=== PATIENT | female | born 1975 | race Caucasian/White ===

== ENCOUNTER 2017-03-14 15:13 | Emergency (ER) | payer MEDICAID ==
[2017-03-14 17:02] VITALS: BP 136/96
--- NOTE | 2017-03-14 18:01 | EDM.PDOC ---
ED HPI GENERAL MEDICAL PROBLEM - General Chief Complaint: Skin Complaint Stated Complaint: INFECTION Time Seen by Provider: 03/14/17 16:41 Source of Information: Reports: Patient, RN Notes Reviewed History Limitations: Reports: No Limitations - History of Present Illness INITIAL COMMENTS - FREE TEXT/NARRATIVE: 41-year-old female presents emergency department day complaint of rash on her chin, she states this is developed over the last 3 days initially started with a whisker burn has progressively gotten worse started with small vesicles which had clear fluid that has coalesced into a larger denuded area that is yellow in color it is tender to the touch it is predominantly on the chin area but is starting to spread denies any fevers or difficulty swallowing - Related Data Allergies Allergy/AdvReac Type Severity Reaction Status Date / Time morphine Allergy Swelling Verified 08/03/16 19:33 Sulfa (Sulfonamide Allergy Rash Verified 08/03/16 19:33 Antibiotics) Home Meds: Home Meds ALPRAZolam [Xanax] 1 mg PO BID 12/07/13 [History] Hydrocodone/Acetaminophen [Vicodin 5-300 mg Tablet] 1 each PO TID PRN 12/07/13 [ History] Ibuprofen 800 mg PO Q4HR PRN 12/07/13 [History] Albuterol [Proventil HFA] 1 dose INH QID PRN 02/24/15 [History] Fluticasone Propionate [Flonase] 2 sprays IDALIA DAILY PRN 02/24/15 [History] Pregabalin [Lyrica] 150 mg PO TID 02/14/16 [History] Past Medical History HEENT History: Reports: Allergic Rhinitis Respiratory History: Reports: Asthma Genitourinary History: Reports: Pyelonephritis, UTI, Recurrent Other Genitourinary History: voiding only 2 times daily with abdominal pain 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 , Musculoskeletal History: Reports: Back Pain, Chronic, Fracture, Other (See Below ) Other Musculoskeletal History: bulging discs in back Neurological History: Reports: Neuropathy, Peripheral Psychiatric History: Reports: Anxiety, Panic Attack Hematologic History: Reports: Anemia Dermatologic History: Reports: Other (See Below) Other Dermatologic History: dermatitis - Infectious Disease History Infectious Disease History: Reports: Chicken Pox - Past Surgical History Female Surgical History: Reports: Section, Oophorectomy, Other (See Below) Social & Family History - Family History Respiratory: Reports: Asthma - Tobacco Use Smoking Status *Q: Current Every Day Smoker Years of Tobacco use: 20 Packs/Tins Daily: 1 Used Tobacco, but Quit: Yes Month Tobacco Last Used: february Second Hand Smoke Exposure: Yes - Caffeine Use Caffeine Use: Reports: Coffee, Energy Drinks Other Caffeine Use: 2-3 pots a day -1 energy drink a day - Recreational Drug Use Recreational Drug Use: No ED ROS GENERAL - Review of Systems Review Of Systems: See Below Constitutional: Denies: Fever, Chills HEENT: Reports: No Symptoms Respiratory: Reports: No Symptoms Cardiovascular: Reports: No Symptoms GI/Abdominal: Reports: No Symptoms : Reports: No Symptoms Skin: Reports: Rash ED EXAM, SKIN/RASH Exam: See Below Text/Narrative:: examination of the integument system I don't appreciate any vesicles there is a large denuded area with an Eschar over the chin across the midline there is honey crusted coloring around the outer edge there are no lesions inside the mouth Exam Limited By: No Limitations General Appearance: Alert, WD/WN, No Apparent Distress Course - Vital Signs Last Recorded V/S: Last Vital Signs Temp 97.5 F 03/14/17 16:43 Pulse 85 03/14/17 16:43 Resp 12 03/14/17 16:43 BP 136/96 H 03/14/17 16:43 Pulse Ox 97 03/14/17 16:43 Departure - Departure Time of Disposition: 17:59 Disposition: Home, Self-Care 01 Condition: Good Clinical Impression: Impetigo - Discharge Information Referrals: Dennis Art MD [Primary Care Provider] - Additional Instructions: take full course of antibiotics, Please followup with your primary care provider in 3-5 days if not better, please call return to the emergency department with worsening of symptoms. - Assessment/Plan Plan: Assessment Acuity = acute Site and laterality = impetigo Etiology = bacterial cause Manifestations = rash and pain Location of injury = Home Lab values = none Plan because of the severity of the rash and the spreading elected to treat with Augmentin 7 day course 875 by mouth twice a day follow-up with primary care 3-5 days for reevaluation Patient was in agreement with the plan all questions were answered, they were instructed to return to the emergency department or call for worsening symptoms. This note was dictated using [employer] voice recognition software please call with any questions.
== END 2017-03-14 18:10 | disposition home or self-care (01) ==
LOC: JP.ED 15:13
DX: L01.00 Impetigo, unspecified (principal); B96.89 Other specified bacterial agents as the cause of diseases classified elsewhere; J45.909 Unspecified asthma, uncomplicated; F41.0 Panic disorder [episodic paroxysmal anxiety]; Z87.440 Personal history of urinary (tract) infections; Z86.2 Personal history of diseases of the blood and blood-forming organs and certain disorders involving the immune mechanism; F17.210 Nicotine dependence, cigarettes, uncomplicated; Z79.899 Other long term (current) drug therapy; Z88.2 Allergy status to sulfonamides; Z88.5 Allergy status to narcotic agent
CPT/HCPCS: 99283

== ENCOUNTER 2017-03-24 19:34 | Emergency (ER) | payer MEDICAID ==
[2017-03-24 20:20] VITALS: BP 159/83
[2017-03-24] MEDS ORDERED: Ketorolac 60 MG/2 ML SDV IM ONE (20:44)
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
--- NOTE | 2017-03-25 09:03 | CR ---
Hand 2V Lt HISTORY: Injury. COMPARISON: None FINDINGS: No fracture or foreign body. No bony destructive process seen. Impression: Negative left hand.
== END 2017-03-24 22:34 | disposition home or self-care (01) ==
LOC: JP.ED 19:34
DX: S63.502A Unspecified sprain of left wrist, initial encounter (principal); J45.909 Unspecified asthma, uncomplicated; F41.0 Panic disorder [episodic paroxysmal anxiety]; F17.210 Nicotine dependence, cigarettes, uncomplicated; Z86.2 Personal history of diseases of the blood and blood-forming organs and certain disorders involving the immune mechanism; Z79.899 Other long term (current) drug therapy; Z88.5 Allergy status to narcotic agent; Z88.2 Allergy status to sulfonamides; X50.1XXA Overexertion from prolonged static or awkward postures, initial encounter
CPT/HCPCS: 73120; 96372; 99284; J1885

== ENCOUNTER 2018-02-06 18:11 | Emergency (ER) | payer MEDICAID ==
--- NOTE | 2018-02-06 19:07 | EDM.PDOC ---
ED HPI GENERAL MEDICAL PROBLEM - General Chief Complaint: General Stated Complaint: LIGHT HEADED, SWOLLEN FEET Time Seen by Provider: 02/06/18 18:29 Source of Information: Reports: Patient, RN Notes Reviewed History Limitations: Reports: No Limitations - History of Present Illness INITIAL COMMENTS - FREE TEXT/NARRATIVE: 42-year-old female presents to the emergency department today complaint of leg edema, she states been on for about one month symptoms wax and wane she has had a couple syncopal events has also noticed her blood pressure has been elevated she checked it at one of the local stores and it was around 140/90. Denies any other symptoms no shortness of breath or chest pain no nausea or vomiting no other GI symptoms she hasn't particularly noticed any weight gain - Related Data Allergies Allergy/AdvReac Type Severity Reaction Status Date / Time Latex, Natural Rubber Allergy Rash Verified 02/06/18 18:44 morphine Allergy Swelling Verified 02/06/18 18:44 Sulfa (Sulfonamide Allergy Rash Verified 02/06/18 18:44 Antibiotics) Home Meds: Home Meds ALPRAZolam [Xanax] 1 mg PO BID 12/07/13 [History] Hydrocodone/Acetaminophen [Vicodin 5-300 mg Tablet] 1 each PO TID PRN 12/07/13 [ History] Ibuprofen 800 mg PO Q4HR PRN 12/07/13 [History] Albuterol [Proventil HFA] 1 dose INH QID PRN 02/24/15 [History] Fluticasone Propionate [Flonase] 2 sprays IDALIA DAILY PRN 02/24/15 [History] Pregabalin [Lyrica] 150 mg PO TID 02/14/16 [History] Past Medical History HEENT History: Reports: Allergic Rhinitis Respiratory History: Reports: Asthma Genitourinary History: Reports: Pyelonephritis, UTI, Recurrent Other Genitourinary History: voiding only 2 times daily 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 , Musculoskeletal History: Reports: Back Pain, Chronic, Fracture, Other (See Below ) Other Musculoskeletal History: bulging discs in back Neurological History: Reports: Neuropathy, Peripheral Psychiatric History: Reports: Anxiety, Panic Attack Hematologic History: Reports: Anemia Dermatologic History: Reports: Other (See Below) Other Dermatologic History: dermatitis - Infectious Disease History Infectious Disease History: Reports: Chicken Pox - Past Surgical History HEENT Surgical History: Reports: None Female Surgical History: Reports: Section, Oophorectomy, Other (See Below) Social & Family History - Family History Respiratory: Reports: Asthma - Tobacco Use Smoking Status *Q: Current Every Day Smoker Years of Tobacco use: 20 Packs/Tins Daily: 1 - Caffeine Use Caffeine Use: Reports: Energy Drinks Other Caffeine Use: 2-3 pots a day -1 energy drink a day - Recreational Drug Use Recreational Drug Use: No ED ROS GENERAL - Review of Systems Review Of Systems: See Below Constitutional: Reports: No Symptoms HEENT: Reports: No Symptoms Respiratory: Reports: No Symptoms Cardiovascular: Reports: Edema, Lightheadedness, Syncope GI/Abdominal: Reports: No Symptoms : Reports: No Symptoms Musculoskeletal: Reports: No Symptoms Skin: Reports: No Symptoms Neurological: Reports: No Symptoms ED EXAM, GENERAL - Physical Exam Exam: See Below Free Text/Narrative:: General: Female, not in any distress, alert and oriented x3 HEENT: head is atraumatic normocephalic, eyes pupils equal round reactive to light, sclera clear no conjunctivitis appreciated. Ears tympanic membranes clear and bermudez landmarks and light reflex are present bilaterally canals are clear. Nose no septal deviation, nares are clear, no blood present. Mouth mucosa is moist and pink no erythema or exudate noted in soft palate, tongue is midline uvula is midline, dentition is intact. Neck: Supple no thyromegaly no tracheal deviation. Nodes: Cervical nodes subclavicular nodes nontender no palpable lymphadenopathy noted. Lungs: clear to auscultation bilaterally with symmetrical respirations, no adventitious noise appreciated. CV: Regular rate and rhythm S1 and S2 appreciated no murmurs rubs or gallops noted. Abdomen: Soft, obese, nontender, no palpable masses or organomegaly appreciated , no distention no guarding bowel sounds are present, . Neuro: Cranial nerves II through XII grossly intact Skin: Warm and dry, intact Extremities: +1 pitting edema bilaterally, pedal pulse is +2. Course - Vital Signs Last Recorded V/S: Last Vital Signs Temp 96.3 F 02/06/18 18:47 Pulse 70 02/06/18 19:31 Resp 13 02/06/18 19:31 BP 139/93 H 02/06/18 19:31 Pulse Ox 95 02/06/18 19:31 - Orders/Labs/Meds Orders: Active Orders 24 hr Category Date Time Status Cardiac Monitoring [RC] .As Directed Care 02/06/18 19:03 Active EKG Documentation Completion [RC] ASDIRECTED Care 02/06/18 19:04 Active Chest 2V [CR] Stat Exams 02/06/18 19:04 Taken UA W/MICROSCOPIC [URIN] Stat Lab 02/06/18 19:25 Ordered hydroCHLOROthiazide Med 02/06/18 20:16 Once 25 mg PO ONETIME ONE metroNIDAZOLE Med 02/06/18 20:16 Once 2,000 mg PO NOW ONE EKG 12 Lead [EK] Stat Ther 02/06/18 19:04 Ordered Labs: Laboratory Tests 02/06/18 02/06/18 02/06/18 Range/Units 19:15 19:15 19:25 WBC 6.2 (4.5-11.0) K/uL RBC 4.03 (3.30-5.50) M/uL Hgb 11.6 L (12.0-15.0) g/dL Hct 35.8 L (36.0-48.0) % MCV 89 (80-98) fL MCH 29 (27-31) pg MCHC 32 (32-36) % Plt Count 281 (150-400) K/uL Neut % (Auto) 45 (36-66) % Lymph % (Auto) 43 (24-44) % [place] % (Auto) 10 H (2-6) % Eos % (Auto) 2 (2-4) % Baso % (Auto) 0 (0-1) % Sodium 140 (140-148) mmol/L Potassium 3.8 (3.6-5.2) mmol/L Chloride 106 (100-108) mmol/L Carbon Dioxide 26 (21-32) mmol/L Anion Gap 7.6 (5.0-14.0) mmol/L BUN 8 (7-18) mg/dL Creatinine 0.8 (0.6-1.0) mg/dL Est Cr Clr Drug Dosing 73.93 mL/min Estimated GFR (MDRD) > 60 (>60) Glucose 85 (74-106) mg/dL Calcium 8.2 L (8.5-10.1) mg/dL Total Bilirubin 0.1 L D (0.2-1.0) mg/dL AST 12 L (15-37) U/L ALT 12 (12-78) U/L Alkaline Phosphatase 49 (46-116) U/L Troponin I < 0.017 (0.000-0.056) ng/mL Total Protein 5.7 L (6.4-8.2) g/dL Albumin 2.8 L (3.4-5.0) g/dL Globulin 2.9 (2.3-3.5) g/dL Albumin/Globulin Ratio 1.0 L (1.2-2.2) Urine Color Yellow Urine Appearance Cloudy Urine pH 6.0 (4.5-8.0) Ur Specific [place] 1.010 (1.008-1.030) Urine Protein Negative (NEGATIVE) mg/dL Urine Glucose (UA) Normal (NEGATIVE) mg/dL Urine Ketones Negative (NEGATIVE) mg/dL Urine Occult Blood Negative (NEGATIVE) Urine Nitrite Negative (NEGATIVE) Urine Bilirubin Negative (NEGATIVE) Urine Urobilinogen Normal (NORMAL) mg/dL Ur Leukocyte Esterase Moderate (NEGATIVE) Urine RBC 0-5 (0-5) Urine WBC 20-30 H (0-5) Ur Epithelial Cells Moderate Amorphous Sediment Few Urine Bacteria Moderate Urine Mucus Few Urine Other See note Departure - Departure Time of Disposition: 20:18 Disposition: Home, Self-Care 01 Condition: Good Clinical Impression: Trichomonas vaginalis infection, Essential hypertension - Discharge Information Referrals: Dennis Art MD [Primary Care Provider] - Forms: ED Department Discharge Additional Instructions: Recommend starting hydrochlorothiazide one tablet once a day follow-up with primary care in 7-10 days for reevaluation, call return to the emergency department worsening of symptoms - My Orders Last 24 Hours: My Active Orders 02/06/18 19:03 Cardiac Monitoring [RC] .As Directed 02/06/18 19:04 EKG Documentation Completion [RC] ASDIRECTED Chest 2V [CR] Stat EKG 12 Lead [EK] Stat 02/06/18 19:25 UA W/MICROSCOPIC [URIN] Stat 02/06/18 20:16 hydroCHLOROthiazide 25 mg PO ONETIME ONE metroNIDAZOLE 2,000 mg PO NOW ONE - Assessment/Plan Last 24 Hours: My Active Orders 02/06/18 19:03 Cardiac Monitoring [RC] .As Directed 02/06/18 19:04 EKG Documentation Completion [RC] ASDIRECTED Chest 2V [CR] Stat EKG 12 Lead [EK] Stat 02/06/18 19:25 UA W/MICROSCOPIC [URIN] Stat 02/06/18 20:16 hydroCHLOROthiazide 25 mg PO ONETIME ONE metroNIDAZOLE 2,000 mg PO NOW ONE Plan: Assessment Acuity = acute Site and laterality = hypertension probable essential, Trichomonas vaginalis Etiology = Trichomonas Manifestations = leg edema, lightheadedness Location of injury = Home Lab values = CBC, CMP unremarkable EKG demonstrates a sinus rhythm no ST changes or depression chest x-ray I did review films myself I cannot appreciate any acute process, the official read from radiology is pending, urinalysis reveals 20-30 WBCs consistent pyuria Trichomonas was present Plan Elected to treat with 2 g Flagyl by mouth 1 also will start her on hydrochlorothiazide 25 mg one tablet once a day him follow-up with her primary care in 7 days for reevaluation This note was dictated using [employer] voice recognition software please call with any questions on syntax or grammar.
[2018-02-06] MEDS ORDERED: metroNIDAZOLE 250 MG Tab PO ONE (20:16)
[2018-02-06] MEDS ORDERED: Hydrochlorothiazide 25 MG Tab PO ONE (20:16)
[2018-02-06 20:29] VITALS: BP 117/65
--- NOTE | 2018-02-08 09:04 | CR ---
CHEST: 2 view CLINICAL HISTORY:Syncope COMPARISON:2009 FINDINGS: Heart size and pulmonary vascularity are normal. Lung martínez are clear. Patient has a mode rate S-shaped scoliosis with thoracic convexity to the right.. IMPRESSION: No acute cardio pelvic process or significant change from prior study. scoliosis
== END 2018-02-06 20:57 | disposition home or self-care (01) ==
LOC: JP.ED 18:11
DX: A59.01 Trichomonal vulvovaginitis (principal); F17.210 Nicotine dependence, cigarettes, uncomplicated; F41.9 Anxiety disorder, unspecified; Z79.899 Other long term (current) drug therapy; Z91.040 Latex allergy status; Z88.5 Allergy status to narcotic agent; Z88.2 Allergy status to sulfonamides
CPT/HCPCS: 36415; 71046; 80053; 81001; 84484; 85025; 93005; 99284; A9270

== ENCOUNTER 2018-08-17 19:09 | Emergency (ER) | payer MEDICAID ==
[2018-08-17 19:46] VITALS: BP 141/97
--- NOTE | 2018-08-17 20:26 | EDM.PDOC ---
ED HPI GENERAL MEDICAL PROBLEM - General Chief Complaint: Abdominal Pain Stated Complaint: FAINTING, STOMACH PAIN, POSSIBLE Time Seen by Provider: 08/17/18 20:05 Source of Information: Reports: Patient, Old Records, RN History Limitations: Reports: No Limitations - History of Present Illness INITIAL COMMENTS - FREE TEXT/NARRATIVE: 42 yo female presents with dizziness with standing, L flank and LLQ abdominal pain. She was seen in the clinic last week for the dizziness and they told her she was dehydrated. She denies any urinary sx's. States she had a recent home preg test that was positive. She relates that labs in the clinic about 1.5 weeks ago were normal. No recent fever, diarrhea, vomiting, or nausea. Denies injury to the flank area. Onset: Gradual Duration: Day(s):, Constant Location: Reports: Abdomen (LLQ), Back (L flank) Quality: Reports: Ache Severity: Moderate Improves with: Reports: Rest Worsens with: Reports: Movement Context: Reports: Other (See HPI) Associated Symptoms: Reports: Headaches (intermittent "migraines"). 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) Abdomen Pain Score (Numeric/FACES): 3 - Related Data Allergies Allergy/AdvReac Type Severity Reaction Status Date / Time Latex, Natural Rubber Allergy Rash Verified 08/17/18 19:45 morphine Allergy Swelling Verified 08/17/18 19:45 Sulfa (Sulfonamide Allergy Rash Verified 08/17/18 19:45 Antibiotics) Home Meds: Home Meds ALPRAZolam [Xanax] 1 mg PO BID 12/07/13 [History] Hydrocodone/Acetaminophen [Vicodin 5-300 mg Tablet] 1 each PO TID PRN 12/07/13 [ History] Ibuprofen 800 mg PO Q4HR PRN 12/07/13 [History] Albuterol [Proventil HFA] 1 dose INH QID PRN 02/24/15 [History] Fluticasone Propionate [Flonase] 2 sprays IDALIA DAILY PRN 02/24/15 [History] Pregabalin [Lyrica] 150 mg PO TID 02/14/16 [History] Past Medical History HEENT History: Reports: Allergic Rhinitis Respiratory History: Reports: Asthma Genitourinary History: Reports: Pyelonephritis, UTI, Recurrent Other Genitourinary History: voiding only 2 times daily 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 , Musculoskeletal History: Reports: Back Pain, Chronic, Fracture, Other (See Below ) Other Musculoskeletal History: bulging discs in back Neurological History: Reports: Neuropathy, Peripheral Psychiatric History: Reports: Anxiety, Panic Attack Hematologic History: Reports: Anemia Dermatologic History: Reports: Other (See Below) Other Dermatologic History: dermatitis - Infectious Disease History Infectious Disease History: Reports: Chicken Pox - Past Surgical History Female Surgical History: Reports: Section, Oophorectomy, Tubal Ligation Social & Family History - Family History Respiratory: Reports: Asthma - Tobacco Use Smoking Status *Q: Heavy Tobacco Smoker Years of Tobacco use: 24 Packs/Tins Daily: 1 - Caffeine Use Caffeine Use: Reports: Energy Drinks Other Caffeine Use: 2-3 pots a day -1 energy drink a day - Recreational Drug Use Recreational Drug Use: No ED ROS GENERAL - Review of Systems Review Of Systems: See Below Constitutional: Denies: Fever, Chills, Diaphoresis, Weight Loss HEENT: Reports: No Symptoms Respiratory: Reports: No Symptoms Cardiovascular: Reports: Lightheadedness (with standing, not all the time.). Denies: Chest Pain, Dyspnea on Exertion, Edema, Orthopnea, Palpitations, Syncope Endocrine: Reports: No Symptoms GI/Abdominal: Reports: Abdominal Pain (LLQ pain). Denies: Anorexia, Black Stool , Bloody Stool, Nausea, Vomiting : Reports: Flank Pain (L flank), Other (says she has to push harder to get the urine out than usual. ). Denies: Frequency, Hematuria, Urinary Retention Musculoskeletal: Reports: Back Pain (L flank area.) Skin: Reports: No Symptoms Neurological: Reports: Headache (intermittent "migraines"). 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 No: Normal Teeth Head: Atraumatic, Normocephalic Neck: Normal Inspection Respiratory/Chest: No Respiratory Distress, Lungs Clear, Normal Breath Sounds, No Accessory Muscle Use Cardiovascular: Regular Rate, Rhythm, No Edema GI/Abdominal Exam: Normal Bowel Sounds, Soft, No Distention, Tender (LLQ tenderness with palpation). No: Non-Tender, Distended, Guarding, Rigid, Rebound , Abnormal Bowel Sounds Back Exam: Normal Inspection, Other (Rib tenderness on palpation of the L flank area. ). No: CVA Tenderness (R), CVA Tenderness (L) Extremities: Normal Inspection, Normal Range of Motion, Non-Tender, No Pedal Edema Neurological: Alert, Oriented, CN II-XII Intact, Normal Cognition, No Motor/ Sensory Deficits Psychiatric: Normal Affect, Normal Mood Skin Exam: Warm, Dry, Intact, Normal Color, No Rash Course - Vital Signs Last Recorded V/S: Last Vital Signs Temp 36.2 C 08/17/18 19:46 Pulse 87 08/17/18 19:46 Resp 16 08/17/18 19:46 BP 141/97 H 08/17/18 19:46 Pulse Ox 97 08/17/18 19:46 Orthostatic Blood Pressure [ 123/92 Standing] Orthostatic Blood Pressure [ 145/91 Sitting] Orthostatic Blood Pressure [ 140/89 Supine] - Orders/Labs/Meds Orders: Active Orders 24 hr Category Date Time Status Orthostatic Vital Signs [RC] ASDIRECTED Care 08/17/18 19:39 Active Abdomen Pelvis wo Cont [CT] Stat Exams 08/17/18 21:40 Ordered Labs: Laboratory Tests 08/17/18 08/17/18 08/17/18 Range/Units 20:14 20:21 20:37 WBC 8.4 (4.5-11.0) K/uL RBC 4.59 (3.30-5.50) M/uL Hgb 13.0 (12.0-15.0) g/dL Hct 41.0 (36.0-48.0) % MCV 89 (80-98) fL MCH 28 (27-31) pg MCHC 32 (32-36) % Plt Count 297 (150-400) K/uL Sodium (140-148) mmol/L Potassium (3.6-5.2) mmol/L Chloride (100-108) mmol/L Carbon Dioxide (21-32) mmol/L Anion Gap (5.0-14.0) mmol/L BUN (7-18) mg/dL Creatinine (0.6-1.0) mg/dL Est Cr Clr Drug Dosing mL/min Estimated GFR (MDRD) (>60) Glucose (74-106) mg/dL Calcium (8.5-10.1) mg/dL C-Reactive Protein (0.0-0.3) mg/dL HCG, Qual Urine Color Yellow Urine Appearance Slightly cloudy Urine pH 5.0 (4.5-8.0) Ur Specific [place] 1.015 (1.008-1.030) Urine Protein Negative (NEGATIVE) mg/dL Urine Glucose (UA) Normal (NEGATIVE) mg/dL Urine Ketones Negative (NEGATIVE) mg/dL Urine Occult Blood Large (NEGATIVE) Urine Nitrite Negative (NEGATIVE) Urine Bilirubin Negative (NEGATIVE) Urine Urobilinogen Normal (NORMAL) mg/dL Ur Leukocyte Esterase Negative (NEGATIVE) Urine RBC 20-30 H (0-5) Urine WBC 5-10 H (0-5) Ur Epithelial Cells Many Amorphous Sediment Few Urine Bacteria Not seen Urine Mucus Rare Urine HCG, Qual Negative 08/17/18 08/17/18 Range/Units 20:37 21:04 WBC (4.5-11.0) K/uL RBC (3.30-5.50) M/uL Hgb (12.0-15.0) g/dL Hct (36.0-48.0) % MCV (80-98) fL MCH (27-31) pg MCHC (32-36) % Plt Count (150-400) K/uL Sodium 138 L (140-148) mmol/L Potassium 4.0 (3.6-5.2) mmol/L Chloride 103 (100-108) mmol/L Carbon Dioxide 25 (21-32) mmol/L Anion Gap 14.0 (5.0-14.0) mmol/L BUN 10 (7-18) mg/dL Creatinine 0.9 (0.6-1.0) mg/dL Est Cr Clr Drug Dosing 62.70 mL/min Estimated GFR (MDRD) > 60 (>60) Glucose 93 (74-106) mg/dL Calcium 8.9 (8.5-10.1) mg/dL C-Reactive Protein 0.32 H (0.0-0.3) mg/dL HCG, Qual Negative Urine Color Urine Appearance Urine pH (4.5-8.0) Ur Specific [place] (1.008-1.030) Urine Protein (NEGATIVE) mg/dL Urine Glucose (UA) (NEGATIVE) mg/dL Urine Ketones (NEGATIVE) mg/dL Urine Occult Blood (NEGATIVE) Urine Nitrite (NEGATIVE) Urine Bilirubin (NEGATIVE) Urine Urobilinogen (NORMAL) mg/dL Ur Leukocyte Esterase (NEGATIVE) Urine RBC (0-5) Urine WBC (0-5) Ur Epithelial Cells Amorphous Sediment Urine Bacteria Urine Mucus Urine HCG, Qual Meds: Medications Discontinued Medications Generic Name Dose Route Start Last Admin Trade Name Freq PRN Reason Stop Dose Admin Acetaminophen 1,000 mg 08/17/18 20:29 08/17/18 20:52 Tylenol Extra Strength PO 08/17/18 20:30 1,000 mg ONETIME ONE Administration - Radiology Interpretation Free Text/Narrative:: CT abd/pelvis- CT Results Date: 08/17/18 Departure - Departure Time of Disposition: 22:08 Disposition: Against Medical Advice 07 Condition: Fair Clinical Impression: LLQ abdominal pain - Discharge Information *PRESCRIPTION DRUG MONITORING PROGRAM REVIEWED*: No *COPY OF PRESCRIPTION DRUG MONITORING REPORT IN PATIENT RADHA: No Referrals: Dennis Art MD [Primary Care Provider] - Forms: ED Department Discharge - My Orders Last 24 Hours: My Active Orders 08/17/18 19:39 Orthostatic Vital Signs [RC] ASDIRECTED 08/17/18 21:40 Abdomen Pelvis wo Cont [CT] Stat - Assessment/Plan Last 24 Hours: My Active Orders 08/17/18 19:39 Orthostatic Vital Signs [RC] ASDIRECTED 08/17/18 21:40 Abdomen Pelvis wo Cont [CT] Stat
[2018-08-17] MEDS ORDERED: Acetaminophen 500 MG Tab PO ONE (20:29)
== END 2018-08-17 22:12 | disposition left against medical advice (07) ==
LOC: JP.ED 19:09
DX: R10.32 Left lower quadrant pain (principal); J45.909 Unspecified asthma, uncomplicated; F41.9 Anxiety disorder, unspecified; F17.210 Nicotine dependence, cigarettes, uncomplicated; Z86.2 Personal history of diseases of the blood and blood-forming organs and certain disorders involving the immune mechanism; Z88.2 Allergy status to sulfonamides; Z88.5 Allergy status to narcotic agent; Z91.040 Latex allergy status; Z98.51 Tubal ligation status
CPT/HCPCS: 36415; 80048; 81001; 81025; 84703; 85027; 86140; 99283; A9270

== ENCOUNTER 2018-08-21 16:43 | Emergency (ER) | payer MEDICAID ==
[2018-08-21 17:54] VITALS: BP 144/90
--- NOTE | 2018-08-21 18:39 | EDM.PDOC ---
ED HPI GENERAL MEDICAL PROBLEM - General Chief Complaint: Flank Pain Stated Complaint: LEFT SIDE RIB PAIN Time Seen by Provider: 08/21/18 18:00 Source of Information: Reports: Patient History Limitations: Reports: No Limitations - History of Present Illness INITIAL COMMENTS - FREE TEXT/NARRATIVE: 42 yo with hx of ovarian cyst presents with concerns of left sided flank pain. Reports symptoms started on August 17. Initially she was concerned of epigastric as well as left upper quadrant and left flank pain. Over the last several days this is now become localized primarily to her left flank. The pain is described as stabbing and severe. It radiates into her abdomen. It is intermittent. It started gradually. She has no history of similar pain in the past. No history of renal stones. No urinary discomfort. Does report urinary has been darker than usual. Last menstrual period 2 weeks ago, denies any vaginal discharge or discomfort. Intermittent nausea. No vomiting. No fevers. Surgical history significant for tubal ligation and . No other abdominal surgeries. - Related Data Allergies Allergy/AdvReac Type Severity Reaction Status Date / Time Latex, Natural Rubber Allergy Rash Verified 08/21/18 17:43 morphine Allergy Swelling Verified 08/21/18 17:43 Sulfa (Sulfonamide Allergy Rash Verified 08/21/18 17:43 Antibiotics) Home Meds: Home Meds ALPRAZolam [Xanax] 1 mg PO BID 12/07/13 [History] Hydrocodone/Acetaminophen [Vicodin 5-300 mg Tablet] 2 each PO TID PRN 12/07/13 [ History] Ibuprofen 800 mg PO Q4HR PRN 12/07/13 [History] Albuterol [Proventil HFA] 1 dose INH QID PRN 02/24/15 [History] Fluticasone Propionate [Flonase] 2 sprays IDALIA DAILY PRN 02/24/15 [History] Pregabalin [Lyrica] 150 mg PO TID 02/14/16 [History] Ketorolac [Toradol] 1 tab PO QID PRN 08/21/18 [History] Past Medical History HEENT History: Reports: Allergic Rhinitis Respiratory History: Reports: Asthma Genitourinary History: Reports: Pyelonephritis, UTI, Recurrent Other Genitourinary History: voiding 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 2 times daily 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 , Musculoskeletal History: Reports: Back Pain, Chronic, Fracture, Other (See Below ) Other Musculoskeletal History: bulging discs in back Neurological History: Reports: Neuropathy, Peripheral Psychiatric History: Reports: Anxiety, Panic Attack Hematologic History: Reports: Anemia Dermatologic History: Reports: Other (See Below) Other Dermatologic History: dermatitis - Infectious Disease History Infectious Disease History: Reports: Chicken Pox - Past Surgical History Female Surgical History: Reports: Section, Oophorectomy, Tubal Ligation Social & Family History - Family History Respiratory: Reports: Asthma - Tobacco Use Smoking Status *Q: Current Every Day Smoker Years of Tobacco use: 26 Packs/Tins Daily: 1 - Caffeine Use Caffeine Use: Reports: Energy Drinks Other Caffeine Use: 2-3 pots a day -1 energy drink a day ED ROS GENERAL - Review of Systems Review Of Systems: See Below Constitutional: Reports: No Symptoms HEENT: Reports: No Symptoms Respiratory: Reports: No Symptoms. Denies: Shortness of Breath, Pleuritic Chest Pain, Cough, Hemoptysis Cardiovascular: Reports: No Symptoms Endocrine: Reports: No Symptoms GI/Abdominal: Reports: No Symptoms : Reports: Flank Pain Musculoskeletal: Reports: No Symptoms Skin: Reports: No Symptoms Neurological: Reports: No Symptoms Psychiatric: Reports: No Symptoms Hematologic/Lymphatic: Reports: No Symptoms Immunologic: Reports: No Symptoms ED EXAM, RENAL/ - Physical Exam Exam: See Below Exam Limited By: No Limitations General Appearance: Alert, WD/WN Ears: Normal External Exam Nose: Normal Inspection Head: Atraumatic, Normocephalic Neck: Normal Inspection Respiratory/Chest: Lungs Clear Cardiovascular: Regular Rate, Rhythm, No Murmur GI/Abdominal: Soft, Non-Tender Back Exam: CVA Tenderness (L) (left CVA and rib tenderness) Extremities: Normal Inspection Neurological: Alert, Oriented Psychiatric: Normal Affect, Normal Mood Skin Exam: Warm, Dry Course - Vital Signs Last Recorded V/S: Last Vital Signs Temp 36.3 C 08/21/18 17:51 Pulse 68 08/21/18 17:51 Resp 14 08/21/18 17:51 BP 144/90 H 08/21/18 17:51 Pulse Ox 95 08/21/18 17:51 - Orders/Labs/Meds Orders: Active Orders 24 hr Category Date Time Status Transvaginal Non OB [US] Stat Exams 08/21/18 20:07 Taken VL Duplex Abd Pel Ret Ltd [US] Stat Exams 08/21/18 21:27 Taken Labs: Laboratory Tests 08/21/18 08/21/18 08/21/18 Range/Units 17:40 18:25 18:38 WBC 7.6 (4.5-11.0) K/uL RBC 4.55 (3.30-5.50) M/uL Hgb 13.1 (12.0-15.0) g/dL Hct 40.6 (36.0-48.0) % MCV 89 (80-98) fL MCH 29 (27-31) pg MCHC 32 (32-36) % Plt Count 270 (150-400) K/uL Sodium (140-148) mmol/L Potassium (3.6-5.2) mmol/L Chloride (100-108) mmol/L Carbon Dioxide (21-32) mmol/L Anion Gap (5.0-14.0) mmol/L BUN (7-18) mg/dL Creatinine (0.6-1.0) mg/dL Est Cr Clr Drug Dosing mL/min Estimated GFR (MDRD) (>60) Glucose (74-106) mg/dL Calcium (8.5-10.1) mg/dL Total Bilirubin (0.2-1.0) mg/dL AST (15-37) U/L ALT (12-78) U/L Alkaline Phosphatase (46-116) U/L Total Protein (6.4-8.2) g/dL Albumin (3.4-5.0) g/dL Globulin (2.3-3.5) g/dL Albumin/Globulin Ratio (1.2-2.2) Lipase (73-393) U/L Urine Color Yellow Urine Appearance Slightly cloudy Urine pH 6.5 (4.5-8.0) Ur Specific [place] 1.015 (1.008-1.030) Urine Protein Negative (NEGATIVE) mg/dL Urine Glucose (UA) Normal (NEGATIVE) mg/dL Urine Ketones Negative (NEGATIVE) mg/dL Urine Occult Blood Negative (NEGATIVE) Urine Nitrite Negative (NEGATIVE) Urine Bilirubin Negative (NEGATIVE) Urine Urobilinogen Normal (NORMAL) mg/dL Ur Leukocyte Esterase Trace (NEGATIVE) Urine RBC 0-5 (0-5) Urine WBC 0-5 (0-5) Ur Epithelial Cells Few Amorphous Sediment Few Urine Bacteria Moderate Urine Mucus Not seen Urine HCG, Qual Negative 08/21/18 Range/Units 18:38 WBC (4.5-11.0) K/uL RBC (3.30-5.50) M/uL Hgb (12.0-15.0) g/dL Hct (36.0-48.0) % MCV (80-98) fL MCH (27-31) pg MCHC (32-36) % Plt Count (150-400) K/uL Sodium 140 (140-148) mmol/L Potassium 3.9 (3.6-5.2) mmol/L Chloride 104 (100-108) mmol/L Carbon Dioxide 26 (21-32) mmol/L Anion Gap 10.4 (5.0-14.0) mmol/L BUN 9 (7-18) mg/dL Creatinine 0.9 (0.6-1.0) mg/dL Est Cr Clr Drug Dosing 62.70 mL/min Estimated GFR (MDRD) > 60 (>60) Glucose 81 (74-106) mg/dL Calcium 8.7 (8.5-10.1) mg/dL Total Bilirubin 0.2 D (0.2-1.0) mg/dL AST 15 (15-37) U/L ALT 17 (12-78) U/L Alkaline Phosphatase 46 (46-116) U/L Total Protein 6.7 (6.4-8.2) g/dL Albumin 3.4 (3.4-5.0) g/dL Globulin 3.3 (2.3-3.5) g/dL Albumin/Globulin Ratio 1.0 L (1.2-2.2) Lipase 62 L (73-393) U/L Urine Color Urine Appearance Urine pH (4.5-8.0) Ur Specific [place] (1.008-1.030) Urine Protein (NEGATIVE) mg/dL Urine Glucose (UA) (NEGATIVE) mg/dL Urine Ketones (NEGATIVE) mg/dL Urine Occult Blood (NEGATIVE) Urine Nitrite (NEGATIVE) Urine Bilirubin (NEGATIVE) Urine Urobilinogen (NORMAL) mg/dL Ur Leukocyte Esterase (NEGATIVE) Urine RBC (0-5) Urine WBC (0-5) Ur Epithelial Cells Amorphous Sediment Urine Bacteria Urine Mucus Urine HCG, Qual - Re-Assessments/Exams Free Text/Narrative Re-Assessment/Exam: 42 yo presents with concerns of left flank pain. Ongoing for 5 days now. Normal vitals. Does have L CVA tenderness but also associated rib tenderness on exam. No symptoms to suggest PE or supradiaphragmatic process. Given severity and duration of symptoms will obtains basic labs and CT for renal stone. 08/21/18 18:52 Free Text/Narrative Re-Assessment/Exam: CT with left sided ovarian cysts. Given size elected to performed pelvic US for concern possible torsion, this revealed normal ovarian blood flow. Symptoms consistent with ovarian cyst. Labs otherwise unremarkable Has home script for vicodin and toradol Instructed to follow up with PCP 08/21/18 21:44 Departure - Departure Time of Disposition: 21:46 Disposition: Home, Self-Care 01 Condition: Good Clinical Impression: Ovarian cyst Qualifiers: Laterality: left Qualified Code(s): N83.202 - Unspecified ovarian cyst, left side - Discharge Information *PRESCRIPTION DRUG MONITORING PROGRAM REVIEWED*: No *COPY OF PRESCRIPTION DRUG MONITORING REPORT IN PATIENT RADHA: No Referrals: Dennis Art MD [Primary Care Provider] - Forms: ED Department Discharge Additional Instructions: We believe your pain is likely due to your ovarian cyst Take your home pain meds Make a follow up with your [facility] doctor If your symptoms worsen please seek medical attention - My Orders Last 24 Hours: My Active Orders 08/21/18 20:07 Transvaginal Non OB [US] Stat 08/21/18 21:27 VL Duplex Abd Pel Ret Ltd [US] Stat - Assessment/Plan Last 24 Hours: My Active Orders 08/21/18 20:07 Transvaginal Non OB [US] Stat 08/21/18 21:27 VL Duplex Abd Pel Ret Ltd [US] Stat
--- NOTE | 2018-08-21 19:23 | CRLCT ---
HISTORY: Left flank pain. TECHNIQUE: Noncontrast CT of the abdomen and pelvis. COMPARISON: No prior. FINDINGS: No focal liver parenchymal abnormality. Gallbladder is nondistended. Spleen size within normal limits. Slight thickening of the adrenal glands. No focal pancreatic abnormality or acute peripancreatic inflammatory change. No hydronephrosis. No obstructive urinary calculus. Pelvic calcifications most likely represent phleboliths. - There is a cystic lesion or possibly 2 adjacent cysts involving the left ovary measuring a combined 4.2 x 2.7 cm in size. The ovaries would be better evaluated with ultrasound. There is a small amount of pelvic free fluid. - No small bowel obstruction. No appendicitis. No diverticulitis or definite colitis. No abdominal aortic aneurysm. Duplicated IVC anatomic variant. Small fat containing umbilical region hernia. - Scoliosis. Mild degenerative changes of the spine. There are a few small sclerotic bone lesions involving the pelvis which may represent bone islands. - Mild atelectasis or scarring within the right middle lobe medially. 4 mm nodular or reticulonodular opacity within the right lower lobe on image #5. Respiratory motion limits evaluation of the lung bases. IMPRESSION: 1. Cystic lesion or possibly 2 adjacent cysts involving the left ovary measuring a combined 4.2 x 2.7 cm in size. The left ovary would be better evaluated with ultrasound. 2. Small amount of pelvic free fluid. 3. No hydronephrosis or obstructive urinary calculus. 4. Mild scoliosis. 5. 4 mm nodule or reticulonodular opacity within the right lower lobe. If the patient is low risk, no followup is required. If the patient is high risk, a followup examination could be performed in 12 months. Dictated by Carroll Rojas MD @ 08/21/2018 7:22:21 PM Please note that all CT scans at this facility use dose modulation, iterative reconstruction, and/or weight-based dosing when appropriate to reduce radiation dose to as low as reasonably achievable. Dictated by: Carroll Rojas MD @ 08/21/2018 19:22:25 (Electronically Signed)
--- NOTE | 2018-08-21 21:49 | CRLUS ---
INDICATION: Left ovarian cyst. Right ovary removed. Evaluate for possible torsion. COMPARISON: 22 August 2016 ultrasound [address] FINDINGS: Transvaginal imaging. Small nabothian cysts of the cervix. Uterus 9 x 4 x 5 cm. Endometrial thickness at the fundus at 8 mm. Normal myometrium. Right ovary is 5 x 3 cm with multiple physiologic cysts/follicles, the largest of which is 2.7 cm. Normal color and spectral Doppler arterial and venous blood flow in the surrounding ovarian parenchyma. Trace free fluid in the left adnexa. IMPRESSION: Benign cyst left ovary. No torsion. Dictated by Reymundo Sainz MD @ Aug 21 2018 9:46PM Signed by Dr. Reymundo Sainz @ Aug 21 2018 9:49PM
--- NOTE | 2018-08-21 21:56 | CRLUS ---
HISTORY: Pelvic pain, left ovarian cyst. Evaluate for torsion. TECHNIQUE: Transvaginal pelvic ultrasound. COMPARISON: CT 08/21/2018, ultrasound 08/22/2016. FINDINGS: Uterus measures 8.6 x 5.6 x 4.3 cm in size. Endometrial stripe thickness is 8 mm which is within normal limits. Cervical nabothian cysts. No solid-appearing uterine mass. - Right ovary is absent. No right adnexal mass. Left ovary measures 4.6 x 4.4 x 3.2 cm in size. There are 2 adjacent cysts within the left ovary measuring 2.7 and 2.6 cm long dimension, respectively. Blood flow is detected within left ovary without findings of torsion. Trace amount of pelvic free fluid. IMPRESSION: 1. Two cysts within the left ovary. Blood flow detected within the left ovary without findings of torsion. 2. Trace pelvic free fluid. 3. Absent right ovary. Dictated by Carroll Rojas MD @ 08/21/2018 9:54:21 PM Dictated by: Carroll Rojas MD @ 08/21/2018 21:54:27 (Electronically Signed)
== END 2018-08-21 21:59 | disposition home or self-care (01) ==
LOC: JP.ED 16:43
DX: N83.202 Unspecified ovarian cyst, left side (principal); F17.210 Nicotine dependence, cigarettes, uncomplicated; F41.9 Anxiety disorder, unspecified; Z79.899 Other long term (current) drug therapy; Z91.040 Latex allergy status; Z88.5 Allergy status to narcotic agent; Z88.2 Allergy status to sulfonamides
CPT/HCPCS: 36415; 74176; 76830; 80053; 81001; 81025; 83690; 85027; 93976; 99284-25

== ENCOUNTER 2018-11-25 19:43 | Emergency (ER) | payer MEDICAID ==
--- NOTE | 2018-11-25 19:59 | EDM.PDOC ---
ED HPI GENERAL MEDICAL PROBLEM - General Chief Complaint: Cardiovascular Problem Stated Complaint: HIGH BP, HEADACHE Time Seen by Provider: 11/25/18 20:32 Source of Information: Reports: Patient History Limitations: Reports: No Limitations - History of Present Illness INITIAL COMMENTS - FREE TEXT/NARRATIVE: pt is going through alot of family stress. Her son is in senior care and is being charged for some things that thefamily is blaming him for. She noted that her bp got very high today. She felt sob. She did not have chest pain. She is not vomiting. She is describing a headache like a migraine. Onset: Today, Sudden, Other (pt was very upset today regarding her family issues. ) Duration: Hour(s): Location: Reports: Head, Other (pt was sob. ) Associated Symptoms: Reports: Headaches, Malaise, Shortness of Breath, Other ( pt has been under alot of stress. ) Back Pain Score (Numeric/FACES): 7 - Related Data Allergies Allergy/AdvReac Type Severity Reaction Status Date / Time Latex, Natural Rubber Allergy Rash Verified 11/25/18 19:56 morphine Allergy Swelling Verified 11/25/18 19:56 Sulfa (Sulfonamide Allergy Rash Verified 11/25/18 19:56 Antibiotics) Home Meds: Home Meds ALPRAZolam [Xanax] 1 mg PO BID 12/07/13 [History] Albuterol [Proventil HFA] 1 dose INH QID PRN 02/24/15 [History] Fluticasone Propionate [Flonase] 2 sprays IDALIA DAILY PRN 02/24/15 [History] Pregabalin [Lyrica] 150 mg PO TID 02/14/16 [History] Ketorolac [Toradol] 1 tab PO QID PRN 08/21/18 [History] Past Medical History HEENT History: Reports: Allergic Rhinitis Respiratory History: Reports: Asthma Genitourinary History: Reports: Pyelonephritis, UTI, Recurrent Other Genitourinary History: voiding only 2 times daily with abdominal pain 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 , Musculoskeletal History: Reports: Back Pain, Chronic, Fracture, Other (See Below ) Other Musculoskeletal History: bulging discs in back Neurological History: Reports: Neuropathy, Peripheral Psychiatric History: Reports: Anxiety, Panic Attack Hematologic History: Reports: Anemia Dermatologic History: Reports: Other (See Below) Other Dermatologic History: dermatitis - Infectious Disease History Infectious Disease History: Reports: Chicken Pox - Past Surgical History Female Surgical History: Reports: Section, Oophorectomy, Tubal Ligation Social & Family History - Family History Respiratory: Reports: Asthma - Caffeine Use Caffeine Use: Reports: Energy Drinks Other Caffeine Use: 2-3 pots a day -1 energy drink a day ED ROS GENERAL - Review of Systems Review Of Systems: See Below Constitutional: Reports: No Symptoms HEENT: Reports: No Symptoms Respiratory: Reports: Shortness of Breath, Other (pt thinks she could have been hyperventilating. ) Cardiovascular: Reports: No Symptoms Endocrine: Reports: No Symptoms GI/Abdominal: Reports: Other (pt did not have severe abdomanal pain today but she has been having some on going abdomanal pain. ) : Reports: No Symptoms Musculoskeletal: Reports: No Symptoms Skin: Reports: No Symptoms Neurological: Reports: No Symptoms ED EXAM, GENERAL - Physical Exam Exam: See Below Free Text/Narrative:: pt arrived with a feeling of sob , bp being up and anxious. She has been under alot of stress with her family. She believes that she had a panic attack today. Exam Limited By: No Limitations General Appearance: Alert, Moderate Distress, Other (pt feels like her head ache was pretty severe. ) Ears: Normal TMs Nose: Normal Inspection Throat/Mouth: Normal Inspection Head: Atraumatic Neck: Normal Inspection Respiratory/Chest: No Respiratory Distress Cardiovascular: Regular Rate, Rhythm GI/Abdominal: Soft, Non-Tender (Female) Exam: Deferred Rectal (Female) Exam: Deferred Back Exam: Normal Inspection Extremities: Normal Inspection Neurological: Alert, Oriented, Normal Cognition, Other (pt did seem very anxious on arrival. ) Psychiatric: Anxious Course - Vital Signs Last Recorded V/S: Last Vital Signs Temp 36.7 C 11/25/18 20:06 Pulse 77 11/25/18 21:07 Resp 12 11/25/18 21:07 BP 160/91 H 11/25/18 21:07 Pulse Ox 95 11/25/18 21:07 - Orders/Labs/Meds Orders: Active Orders 24 hr Category Date Time Status EKG Documentation Completion [RC] ASDIRECTED Care 11/25/18 19:58 Active CULTURE URINE [RM] Stat Lab 11/25/18 21:35 Received Levofloxacin/Dextrose 5%-Water [Levaquin in D5W 500 MG/ Med 11/25/18 21:51 Ordered 100 ML] 500 mg Premix Bag 1 bag IV ONETIME Sodium Chloride 0.9% [Normal Saline] 1,000 ml Med 11/25/18 20:30 Active IV ASDIRECTED EKG 12 Lead [EK] Routine Ther 11/25/18 19:58 Ordered Medication Orders Sodium Chloride (Normal Saline) 1,000 mls @ 999 mls/hr IV ASDIRECTED SAIGE Last Admin: 11/25/18 21:03 Dose: 999 mls/hr Labs: Laboratory Tests 11/25/18 11/25/18 11/25/18 Range/Units 20:10 20:10 20:10 WBC 8.7 (4.5-11.0) K/uL RBC 4.41 (3.30-5.50) M/uL Hgb 13.2 (12.0-15.0) g/dL Hct 39.7 (36.0-48.0) % MCV 90 (80-98) fL MCH 30 (27-31) pg MCHC 33 (32-36) % Plt Count 284 (150-400) K/uL Neut % (Auto) 53 (36-66) % Lymph % (Auto) 38 (24-44) % [place] % (Auto) 7 H (2-6) % Eos % (Auto) 3 (2-4) % Baso % (Auto) 0 (0-1) % Sodium 140 (140-148) mmol/L Potassium 4.0 (3.6-5.2) mmol/L Chloride 107 (100-108) mmol/L Carbon Dioxide 26 (21-32) mmol/L Anion Gap 7.4 (5.0-14.0) mmol/L BUN 15 D (7-18) mg/dL Creatinine 0.9 (0.6-1.0) mg/dL Est Cr Clr Drug Dosing 62.07 mL/min Estimated GFR (MDRD) > 60 (>60) Glucose 100 (74-106) mg/dL Calcium 8.6 (8.5-10.1) mg/dL Total Bilirubin 0.1 L (0.2-1.0) mg/dL AST 11 L (15-37) U/L ALT 18 (12-78) U/L Alkaline Phosphatase 39 L (46-116) U/L Troponin I < 0.017 (0.000-0.056) ng/mL Total Protein 6.6 (6.4-8.2) g/dL Albumin 3.3 L (3.4-5.0) g/dL Globulin 3.3 (2.3-3.5) g/dL Albumin/Globulin Ratio 1.0 L (1.2-2.2) Urine Color Urine Appearance Urine pH (4.5-8.0) Ur Specific Hope (1.008-1.030) Urine Protein (NEGATIVE) mg/dL Urine Glucose (UA) (NEGATIVE) mg/dL Urine Ketones (NEGATIVE) mg/dL Urine Occult Blood (NEGATIVE) Urine Nitrite (NEGATIVE) Urine Bilirubin (NEGATIVE) Urine Urobilinogen (NORMAL) mg/dL Ur Leukocyte Esterase (NEGATIVE) Urine RBC (0-5) Urine WBC (0-5) Ur Epithelial Cells Amorphous Sediment Urine Bacteria Urine Mucus 11/25/18 Range/Units 20:49 WBC (4.5-11.0) K/uL RBC (3.30-5.50) M/uL Hgb (12.0-15.0) g/dL Hct (36.0-48.0) % MCV (80-98) fL MCH (27-31) pg MCHC (32-36) % Plt Count (150-400) K/uL Neut % (Auto) (36-66) % Lymph % (Auto) (24-44) % [place] % (Auto) (2-6) % Eos % (Auto) (2-4) % Baso % (Auto) (0-1) % Sodium (140-148) mmol/L Potassium (3.6-5.2) mmol/L Chloride (100-108) mmol/L Carbon Dioxide (21-32) mmol/L Anion Gap (5.0-14.0) mmol/L BUN (7-18) mg/dL Creatinine (0.6-1.0) mg/dL Est Cr Clr Drug Dosing mL/min Estimated GFR (MDRD) (>60) Glucose (74-106) mg/dL Calcium (8.5-10.1) mg/dL Total Bilirubin (0.2-1.0) mg/dL AST (15-37) U/L ALT (12-78) U/L Alkaline Phosphatase (46-116) U/L Troponin I (0.000-0.056) ng/mL Total Protein (6.4-8.2) g/dL Albumin (3.4-5.0) g/dL Globulin (2.3-3.5) g/dL Albumin/Globulin Ratio (1.2-2.2) Urine Color Yellow Urine Appearance Turbid Urine pH 5.0 (4.5-8.0) Ur Specific Hope 1.015 (1.008-1.030) Urine Protein Negative (NEGATIVE) mg/dL Urine Glucose (UA) Normal (NEGATIVE) mg/dL Urine Ketones Negative (NEGATIVE) mg/dL Urine Occult Blood Moderate (NEGATIVE) Urine Nitrite Negative (NEGATIVE) Urine Bilirubin Negative (NEGATIVE) Urine Urobilinogen Normal (NORMAL) mg/dL Ur Leukocyte Esterase Large (NEGATIVE) Urine RBC Semi-packed H (0-5) Urine WBC Packed H (0-5) Ur Epithelial Cells Many Amorphous Sediment Not seen Urine Bacteria Many Urine Mucus Not seen Meds: Medications Generic Name Dose Route Start Last Admin Trade Name Freq PRN Reason Stop Dose Admin Sodium Chloride 1,000 mls @ 999 mls/hr 11/25/18 20:30 11/25/18 21:03 Normal Saline IV 999 mls/hr ASDIRECTED SAIGE Administration Discontinued Medications Generic Name Dose Route Start Last Admin Trade Name Freq PRN Reason Stop Dose Admin Ketorolac Tromethamine 30 mg 11/25/18 20:30 11/25/18 21:03 Toradol IVPUSH 11/25/18 20:31 30 mg ONETIME ONE Administration Lorazepam 0.5 mg 11/25/18 20:29 11/25/18 21:03 Ativan IVPUSH 11/25/18 20:30 0.5 mg ONETIME ONE Administration Prochlorperazine Edisylate 10 mg 11/25/18 20:30 11/25/18 21:03 Compazine IVPUSH 11/25/18 20:31 10 mg ONETIME ONE Administration - Re-Assessments/Exams Free Text/Narrative Re-Assessment/Exam: 11/25/18 21:57 pt arrived with sob and anxiety her bp was slightly elevated. She did have a very severe headache. She was given ativan .5, compazine 10mg iv, torodol 30mg iv. She had good relief of her headache. She is chilling at this time and she does have a significant UTI. Levoquin 500mg iv was given. She was also given lopressor 25 mg po. Departure - Departure Time of Disposition: 22:00 Disposition: Home, Self-Care 01 Condition: Fair Clinical Impression: Elevated BP without diagnosis of hypertension, UTI (urinary tract infection), Anxiety, Stress due to family tension Referrals: Dennis Art MD [Primary Care Provider] - Forms: ED Department Discharge Care Plan Goals: appt with Dr Art in the next 3-4 days, levoquin 500mg daily for 1 week, push fluids - My Orders Last 24 Hours: My Active Orders 11/25/18 19:58 EKG Documentation Completion [RC] ASDIRECTED EKG 12 Lead [EK] Routine 11/25/18 20:30 Sodium Chloride 0.9% [Normal Saline] 1,000 ml IV ASDIRECTED 11/25/18 21:35 CULTURE URINE [RM] Stat 11/25/18 21:51 Levofloxacin/Dextrose 5%-Water [Levaquin in D5W 500 MG/100 ML] 500 mg Premix Bag 1 bag IV ONETIME - Assessment/Plan Last 24 Hours: My Active Orders 11/25/18 19:58 EKG Documentation Completion [RC] ASDIRECTED EKG 12 Lead [EK] Routine 11/25/18 20:30 Sodium Chloride 0.9% [Normal Saline] 1,000 ml IV ASDIRECTED 11/25/18 21:35 CULTURE URINE [RM] Stat 11/25/18 21:51 Levofloxacin/Dextrose 5%-Water [Levaquin in D5W 500 MG/100 ML] 500 mg Premix Bag 1 bag IV ONETIME
[2018-11-25] MEDS ORDERED: LORazepam 2 MG/ML SDV IVPUSH ONE (20:29)
[2018-11-25] MEDS ORDERED: Sodium Chloride 0.9% 1,000 ML IV SCH (20:30)
[2018-11-25] MEDS ORDERED: Ketorolac 30 MG/ML SDV IVPUSH ONE (20:30)
[2018-11-25] MEDS ORDERED: Prochlorperazine 10 MG/2 ML SDV IVPUSH ONE (20:30)
--- NOTE | 2018-11-25 21:02 | CRLCR ---
Indication: Shortness of breath Technique: Chest 1 view Comparison: February 06, 2018 Findings/Impression: Cardiovascular and mediastinum: Heart size and vasculature are normal in caliber and appearance. Mediastinum is within normal limits. Lungs and pleural space: Lungs are clear. No sign of infiltrate or mass. No sign of pleural effusion. No pneumothorax. Bones and soft tissues: Dextroscoliosis. Dictated by Ellen Prater MD @ Nov 25 2018 8:59PM Signed by Dr. Ellen Prater @ Nov 25 2018 9:00PM
[2018-11-25] MEDS ORDERED: Levofloxacin/Dextrose 5%-Water 500 MG in Premix Bag 1 BAG IV ONE (21:51)
[2018-11-25] MEDS ORDERED: Metoprolol Tartrate 25 MG Tab PO ONE (21:56)
[2018-11-25 22:08] VITALS: BP 178/102
== END 2018-11-25 23:32 | disposition home or self-care (01) ==
LOC: JP.ED 19:43
DX: R03.0 Elevated blood-pressure reading, without diagnosis of hypertension (principal); N39.0 Urinary tract infection, site not specified; F41.9 Anxiety disorder, unspecified; F43.9 Reaction to severe stress, unspecified; Z79.899 Other long term (current) drug therapy; Z91.040 Latex allergy status; Z88.2 Allergy status to sulfonamides
CPT/HCPCS: 36415; 71045; 80053; 81001; 84484; 85025; 87086; 93005; 96365; 96375; 99284; A9270; J0780; J1885; J1956; J2060; J7030

== ENCOUNTER 2019-03-16 16:20 | Emergency (ER) | payer MEDICAID ==
[2019-03-16 17:40] VITALS: BP 143/93; PULSE 91
[2019-03-16] MEDS ORDERED: LORazepam 2 MG/ML SDV IM ONE (18:00)
--- NOTE | 2019-03-16 18:06 | EDM.PDOCBH ---
ED HPI GENERAL MEDICAL PROBLEM - General Chief Complaint: Behavioral/Psych Stated Complaint: PANIC ATTACKS Time Seen by Provider: 03/16/19 17:53 Source of Information: Reports: Patient, Family, RN Notes Reviewed History Limitations: Reports: No Limitations - History of Present Illness INITIAL COMMENTS - FREE TEXT/NARRATIVE: 43-year-old female presents emergency department today complaint of panic attacks, she is controls his Xanax that she feels it's not working she has tried several medications for chronic anxiety but has not had success with that she is currently in the process of trying to get medical marijuana. She is also concerned about the possibility of infection she does have some dysuria and would like to be evaluated for that - Related Data Allergies Allergy/AdvReac Type Severity Reaction Status Date / Time Latex, Natural Rubber Allergy Rash Verified 03/16/19 17:14 morphine Allergy Swelling Verified 03/16/19 17:14 Sulfa (Sulfonamide Allergy Rash Verified 03/16/19 17:14 Antibiotics) Home Meds: Home Meds ALPRAZolam [Xanax] 1 mg PO BID 12/07/13 [History] Albuterol [Proventil HFA] 1 dose INH QID PRN 02/24/15 [History] Pregabalin [Lyrica] 150 mg PO TID 02/14/16 [History] Ketorolac [Toradol] 1 tab PO QID PRN 08/21/18 [History] Ibuprofen 1 tab PO TID PRN 03/16/19 [History] Topiramate 1 tab PO BID 03/16/19 [History] tiZANidine HCl [Tizanidine HCl] 1 tab PO TID PRN 03/16/19 [History] Past Medical History HEENT History: Reports: Allergic Rhinitis Cardiovascular History: Reports: Hypertension Respiratory History: Reports: Asthma Genitourinary History: Reports: Pyelonephritis, UTI, Recurrent Other Genitourinary History: voiding only 2 times daily 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 , Musculoskeletal History: Reports: Back Pain, Chronic, Fracture, Other (See Below ) Other Musculoskeletal History: bulging discs in back Neurological History: Reports: Neuropathy, Peripheral Psychiatric History: Reports: Anxiety, Panic Attack Hematologic History: Reports: Anemia Dermatologic History: Reports: Other (See Below) Other Dermatologic History: dermatitis - Infectious Disease History Infectious Disease History: Reports: Chicken Pox - Past Surgical History Female Surgical History: Reports: Section, Oophorectomy, Tubal Ligation Social & Family History - Family History Respiratory: Reports: Asthma - Tobacco Use Smoking Status *Q: Current Every Day Smoker Years of Tobacco use: 25 Packs/Tins Daily: 1 - Caffeine Use Caffeine Use: Reports: Energy Drinks Other Caffeine Use: 2-3 pots a day -1 energy drink a day ED ROS GENERAL - Review of Systems Review Of Systems: See Below Constitutional: Reports: No Symptoms HEENT: Reports: No Symptoms Respiratory: Reports: No Symptoms Cardiovascular: Reports: No Symptoms GI/Abdominal: Reports: No Symptoms : Reports: Dysuria Neurological: Reports: No Symptoms Psychiatric: Reports: Anxiety ED EXAM, BEHAVIORAL HEALTH - Physical Exam Exam: See Below Exam Limited By: No Limitations General Appearance: Alert, WD/WN, No Apparent Distress Throat/Mouth: Normal Inspection, Normal Lips, Normal Gums, Normal Oropharynx, Normal Voice, No Airway Compromise, Other (Dentition is poor) Head: Atraumatic, Normocephalic Neck: Normal Inspection, Supple, Non-Tender, Full Range of Motion Respiratory/Chest: No Respiratory Distress, Lungs Clear, Normal Breath Sounds, No Accessory Muscle Use, Chest Non-Tender Cardiovascular: Regular Rate, Rhythm, No Murmur GI/Abdominal: Soft, Non-Tender Back Exam: Normal Inspection, Full Range of Motion. No: CVA Tenderness (R), CVA Tenderness (L) COURSE, BEHAVIORAL HEALTH COMP - Course Vital Signs: Last Vital Signs Temp 98.2 F 03/16/19 17:29 Pulse 91 03/16/19 17:29 Resp 17 03/16/19 17:29 BP 143/93 H 03/16/19 17:29 Pulse Ox 96 03/16/19 17:29 Orders, Labs, Meds: Active Orders 24 hr Category Date Time Status UA W/MICROSCOPIC [URIN] Stat Lab 03/16/19 17:32 Ordered Laboratory Tests 03/16/19 03/16/19 Range/Units 18:05 18:05 WBC 6.8 (4.5-11.0) K/uL RBC 4.84 (3.30-5.50) M/uL Hgb 14.2 (12.0-15.0) g/dL Hct 42.7 (36.0-48.0) % MCV 88 (80-98) fL MCH 29 (27-31) pg MCHC 33 (32-36) % Plt Count 294 (150-400) K/uL Neut % (Auto) 50 (36-66) % Lymph % (Auto) 43 (24-44) % [place] % (Auto) 6 (2-6) % Eos % (Auto) 1 L (2-4) % Baso % (Auto) 0 (0-1) % Sodium 140 (140-148) mmol/L Potassium 3.6 (3.6-5.2) mmol/L Chloride 106 (100-108) mmol/L Carbon Dioxide 20 L (21-32) mmol/L Anion Gap 17.6 H (5.0-14.0) mmol/L BUN 8 (7-18) mg/dL Creatinine 0.9 (0.6-1.0) mg/dL Est Cr Clr Drug Dosing 62.07 mL/min Estimated GFR (MDRD) > 60 (>60) Glucose 101 (74-106) mg/dL Calcium 8.8 (8.5-10.1) mg/dL Medications Discontinued Medications Generic Name Dose Route Start Last Admin Trade Name Freq PRN Reason Stop Dose Admin Lorazepam 1 mg 03/16/19 18:00 03/16/19 18:30 Ativan IM 03/16/19 18:01 1 mg ONETIME ONE Administration Departure - Departure Time of Disposition: 18:52 Disposition: Home, Self-Care 01 Condition: Fair Clinical Impression: Panic attack - Discharge Information Referrals: Dennis Art MD [Primary Care Provider] - Forms: ED Department Discharge Additional Instructions: Use Ativan as needed for anxiety symptoms, Please followup with your primary care provider in 3-5 days if not better, please call return to the emergency department with worsening of symptoms. - My Orders Last 24 Hours: My Active Orders 03/16/19 17:32 UA W/MICROSCOPIC [URIN] Stat - Assessment/Plan Last 24 Hours: My Active Orders 03/16/19 17:32 UA W/MICROSCOPIC [URIN] Stat Plan: Assessment Acuity = acute Site and laterality = panic attack Etiology = generalized anxiety disorder Manifestations = none Location of injury = Home Lab values = CBC, BMP, urinalysis unremarkable Plan Prescription written for Ativan 1 mg by mouth 3 times a day when necessary total #10 follow-up with her primary care in next 3-5 days for reevaluation This note was dictated using [employer] voice recognition software please call with any questions on syntax or grammar.
== END 2019-03-16 19:14 | disposition home or self-care (01) ==
LOC: JP.ED 16:20
DX: F41.0 Panic disorder [episodic paroxysmal anxiety] (principal); J45.909 Unspecified asthma, uncomplicated; I10 Essential (primary) hypertension; F17.210 Nicotine dependence, cigarettes, uncomplicated; Z88.5 Allergy status to narcotic agent; Z88.2 Allergy status to sulfonamides; Z91.040 Latex allergy status; Z79.899 Other long term (current) drug therapy
CPT/HCPCS: 36415; 80048; 81001; 85025; 96372; 99283; J2060

== ENCOUNTER 2019-03-26 20:18 | Emergency (ER) | payer MEDICAID ==
[2019-03-26 20:50] VITALS: BP 144/107; PULSE 112
[2019-03-26] MEDS ORDERED: Ondansetron 4 MG Tab.DIS PO ONE (21:08)
[2019-03-26] MEDS ORDERED: LORazepam 1 MG Tab PO ONE (21:08)
--- NOTE | 2019-03-26 21:11 | EDM.PDOC ---
ED HPI GENERAL MEDICAL PROBLEM - General Chief Complaint: General Stated Complaint: PANIC ATTACK,SOB Time Seen by Provider: 03/26/19 20:36 Source of Information: Reports: Patient History Limitations: Reports: No Limitations - History of Present Illness INITIAL COMMENTS - FREE TEXT/NARRATIVE: 43 yo female presents to Er with panic attack. She relates her increase of panic attacks over the last 5 months to a relationship that she is trying to end. She states that she has talked with police regarding this relationship. She has been very nauseated with vomitting fro the last week but states she is sure it is from her anxiety. present today with teenage son Headache Pain Score (Numeric/FACES): 7 - Related Data Allergies Allergy/AdvReac Type Severity Reaction Status Date / Time Latex, Natural Rubber Allergy Rash Verified 03/26/19 20:37 morphine Allergy Swelling Verified 03/26/19 20:37 Sulfa (Sulfonamide Allergy Rash Verified 03/26/19 20:37 Antibiotics) Home Meds: Home Meds ALPRAZolam [Xanax] 1 mg PO TID 12/07/13 [History] Albuterol [Proventil HFA] 1 dose INH QID PRN 02/24/15 [History] Pregabalin [Lyrica] 150 mg PO TID 02/14/16 [History] Ibuprofen 1 tab PO TID PRN 03/16/19 [History] Topiramate 1 tab PO BID 03/16/19 [History] tiZANidine HCl [Tizanidine HCl] 1 tab PO TID PRN 03/16/19 [History] Past Medical History HEENT History: Reports: Allergic Rhinitis Cardiovascular History: Reports: Hypertension Respiratory History: Reports: Asthma Genitourinary History: Reports: Pyelonephritis, UTI, Recurrent Other Genitourinary History: voiding only 2 times daily with abdominal pain 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 , Musculoskeletal History: Reports: Back Pain, Chronic, Fracture, Other (See Below ) Other Musculoskeletal History: bulging discs in back Neurological History: Reports: Neuropathy, Peripheral Psychiatric History: Reports: Anxiety, Panic Attack Hematologic History: Reports: Anemia Dermatologic History: Reports: Other (See Below) Other Dermatologic History: dermatitis - Infectious Disease History Infectious Disease History: Reports: Chicken Pox - Past Surgical History Female Surgical History: Reports: Section, Oophorectomy, Tubal Ligation Social & Family History - Family History Respiratory: Reports: Asthma - Tobacco Use Smoking Status *Q: Current Every Day Smoker Years of Tobacco use: 26 Packs/Tins Daily: 1 Used Tobacco, but Quit: No Second Hand Smoke Exposure: Yes - Caffeine Use Caffeine Use: Reports: Coffee, Soda Other Caffeine Use: 2-3 pots a day -1 energy drink a day - Recreational Drug Use Recreational Drug Use: Yes Drug Use in Last 12 Months: Yes Recreational Drug Type: Reports: Marijuana/Hashish Recreational Drug Use Frequency: Socially ED ROS GENERAL - Review of Systems Review Of Systems: See Below Constitutional: Denies: Fever, Chills, Fatigue Respiratory: Denies: Shortness of Breath, Wheezing Cardiovascular: Denies: Chest Pain ED EXAM, GENERAL - Physical Exam Exam: See Below Exam Limited By: No Limitations General Appearance: Alert, WD/WN, Mild Distress Ear Exam: Bilateral Ear: TM normal, Other (clear effusions) Nose: Clear Rhinorrhea Throat/Mouth: Inflammation, Other (evidence of post nasal drip) Head: Atraumatic, Normocephalic, Facial Tenderness, Sinus Tenderness Neck: Supple, Non-Tender, Full Range of Motion, Lymphadenopathy (R), Lymphadenopathy (L) Respiratory/Chest: No Respiratory Distress, Lungs Clear, Normal Breath Sounds, No Accessory Muscle Use, Chest Non-Tender. No: Crackles, Rhonchi, Wheezing Cardiovascular: Normal Peripheral Pulses, No Edema, Tachycardia Neurological: Alert, Oriented Psychiatric: Anxious Skin Exam: Warm, Intact, No Rash Course - Vital Signs Last Recorded V/S: Last Vital Signs Temp 37.6 C 03/26/19 20:49 Pulse 112 H 03/26/19 20:49 Resp 20 03/26/19 20:49 BP 144/107 H 03/26/19 20:49 Pulse Ox 99 03/26/19 20:49 - Orders/Labs/Meds Meds: Medications Discontinued Medications Generic Name Dose Route Start Last Admin Trade Name Marj PRN Reason Stop Dose Admin Lorazepam 1 mg 03/26/19 21:08 03/26/19 21:28 Ativan PO 03/26/19 21:09 1 mg ONETIME ONE Administration Ondansetron HCl 4 mg 03/26/19 21:08 03/26/19 21:17 Zofran Odt PO 03/26/19 21:09 4 mg ONETIME ONE Administration - Re-Assessments/Exams Free Text/Narrative Re-Assessment/Exam: 03/26/19 22:08 after oral medications appears more relaxed drinking mountain dew no vomiting nausea resolved Departure - Departure Time of Disposition: 22:09 Disposition: Home, Self-Care 01 Condition: Good Clinical Impression: Panic attack Sinusitis, acute Qualifiers: Sinusitis location: unspecified location Recurrence: non-recurrent Qualified Code(s): J01.90 - Acute sinusitis, unspecified Bronchitis, acute Qualifiers: Bronchitis organism: unspecified organism Qualified Code(s): J20.9 - Acute bronchitis, unspecified - Discharge Information *PRESCRIPTION DRUG MONITORING PROGRAM REVIEWED*: Not Applicable *COPY OF PRESCRIPTION DRUG MONITORING REPORT IN PATIENT RADHA: Not Applicable Instructions: Sinusitis, Adult, [id number] Referrals: Dennis Art MD [Primary Care Provider] - Forms: ED Department Discharge Additional Instructions: rest follow-up with primary care provider for anxiety medication adjustments. using Benzodiazepines on a daily or scheduled basis will leave to tolerance and addiction you would benefit from a therapist to assist with your current stressful situation increase fluid intake with 1-2 liters of non-alcohol and non-caffeinated fluids doxycycline 100 mg twice daily for 10 days for your sinus infection
== END 2019-03-26 22:26 | disposition home or self-care (01) ==
LOC: JP.ED 20:18
DX: F41.0 Panic disorder [episodic paroxysmal anxiety] (principal); J01.90 Acute sinusitis, unspecified; J20.9 Acute bronchitis, unspecified; I10 Essential (primary) hypertension; J45.909 Unspecified asthma, uncomplicated; F17.210 Nicotine dependence, cigarettes, uncomplicated; Z88.5 Allergy status to narcotic agent; Z88.2 Allergy status to sulfonamides; Z91.040 Latex allergy status
CPT/HCPCS: 99283; A9270

== ENCOUNTER 2019-07-01 08:19 | Day surgery (SDC) | payer MEDICAID ==
[2019-07-01] MEDS ORDERED: Propofol 200 MG/20 ML SDV ONE (08:37)
[2019-07-01] MEDS ORDERED: fentaNYL 100 MCG/2 ML SDV ONE (08:37)
[2019-07-01] MEDS ORDERED: Midazolam 1 MG/ML 2 ML SDV ONE (08:37)
[2019-07-01] MEDS ORDERED: Sodium Chloride 0.9% 1,000 ML IV SCH (09:15)
[2019-07-01 11:21] VITALS: BP 124/81; PULSE 64
--- NOTE | 2019-07-04 08:24 | OR ---
DATE OF PROCEDURE: 07/01/2019 SURGEON: Waldemar Del Cid MD PROCEDURES: 1. Esophagogastroduodenoscopy. 2. Colonoscopy to transverse colon. FINDINGS: 1. Inflammation at the GE junction. 2. Large amount of solid retained stool in colon, preventing complete exam. COMPLICATION: None. HANDCREW FOREMAN: None. ANESTHESIA: MAC. RISKS: Risks, benefits, alternatives, and limitations including, but not limited to infection, bleeding, and perforation were explained to the patient, who wished to proceed. PROCEDURE IN DETAIL: The patient was placed in left lateral decubitus position. The EGD scope was introduced and advanced atraumatically to the second part of the duodenum. No evidence of duodenitis or ulceration. The GE junction showed some inflammation, which was biopsied multiple times in all 4 quadrants using cold biopsy forceps. The esophagus was normal. Digital rectal exam was performed next. The scope was introduced and advanced atraumatically. There was a large amount of solid stool. This was able to be advanced to the transverse colon. However, due to the large amount of stool, the procedure was terminated at this time. There was difficulty clearing the lens due to the solid stool and to prevent iatrogenic injury, the procedure was terminated. The scope was brought back and retroflexed, and no abnormalities were noted from what could be seen. No colitis or any other abnormalities. Waldemar Del Cid MD /[id number]
== END 2019-07-01 11:20 | disposition home or self-care (01) ==
LOC: JP.SDS 08:19
PROVIDERS: ATTEND Surgery
DX: R19.7 Diarrhea, unspecified (principal); K31.89 Other diseases of stomach and duodenum; K20.9 Esophagitis, unspecified; F41.9 Anxiety disorder, unspecified; F17.200 Nicotine dependence, unspecified, uncomplicated; Z91.040 Latex allergy status; Z88.2 Allergy status to sulfonamides; Z88.5 Allergy status to narcotic agent
CPT/HCPCS: 43239; 45378; 81025; J2250; J2704; J3010; J7030; 88305

== ENCOUNTER 2019-07-07 07:35 | Day surgery (SDC) | payer MEDICAID ==
[2019-07-07] MEDS ORDERED: Sodium Chloride 0.9% 1,000 ML IV SCH (07:45)
[2019-07-07] MEDS ORDERED: Propofol 200 MG/20 ML SDV ONE (08:06)
[2019-07-07] MEDS ORDERED: fentaNYL 100 MCG/2 ML SDV ONE (08:06)
[2019-07-07] MEDS ORDERED: Midazolam 1 MG/ML 2 ML SDV ONE (08:06)
[2019-07-07 10:34] VITALS: BP 123/78; PULSE 79
--- NOTE | 2019-07-08 09:36 | OR ---
DATE OF PROCEDURE: 07/07/2019 SURGEON: Waldemar Del Cid MD PROCEDURE: Colonoscopy. FINDINGS: Sigmoid colon polyp, approximately 3 mm, completely removed using hot snare wire. PREOPERATIVE DIAGNOSIS: Diarrhea. POSTOPERATIVE DIAGNOSIS: Diarrhea. RISKS: Risks, benefits, alternatives, and limitations including, but not limited to infection, bleeding, and perforation were explained to the patient, who wished to proceed. PROCEDURE IN DETAIL: The patient was placed in a left lateral decubitus position. Digital rectal exam was performed without abnormality. Scope was introduced and advanced atraumatically to the ileocecal valve. Scope was brought back through the ascending, transverse, descending colon, and retroflexed. No etiology for the diarrhea, as there is no evidence of colitis, inflammation, or any abnormalities, except for the aforementioned polyp. No abnormalities on retroflexion. The patient tolerated the procedure well. Waldemar Del Cid MD /[id number]
== END 2019-07-07 10:45 | disposition home or self-care (01) ==
LOC: JP.SDS 07:35
PROVIDERS: ATTEND Surgery
DX: R19.7 Diarrhea, unspecified (principal); K63.5 Polyp of colon; F17.200 Nicotine dependence, unspecified, uncomplicated; E66.9 Obesity, unspecified; Z68.31 Body mass index [BMI] 31.0-31.9, adult
CPT/HCPCS: 81025; 88305; J2250; J2704; J3010; J7030

== ENCOUNTER 2019-09-19 06:38 | Day surgery (SDC) | payer MEDICAID ==
[2019-09-19] MEDS ORDERED: Sodium Chloride 0.9% 1,000 ML IV SCH (07:00)
[2019-09-19] MEDS ORDERED: Propofol 200 MG/20 ML SDV ONE (07:14)
[2019-09-19] MEDS ORDERED: Midazolam 1 MG/ML 2 ML SDV ONE (07:15)
[2019-09-19] MEDS ORDERED: fentaNYL 100 MCG/2 ML SDV ONE (07:15)
[2019-09-19 09:19] VITALS: BP 122/78; PULSE 66
--- NOTE | 2019-09-19 14:11 | OR ---
DATE OF PROCEDURE: 09/19/2019 SURGEON: Waldemar Del Cid MD PROCEDURE: Colonoscopy. FINDINGS: Normal colonoscopy. PREOPERATIVE DIAGNOSIS: Thickened area of colon, concerning for malignancy. POSTOPERATIVE DIAGNOSIS: Thickened area of colon, concerning for malignancy. RISKS: Risks, benefits, alternatives, and limitations including, but not limited to infection, bleeding, and perforation were explained to the patient who wished to proceed. PROCEDURE IN DETAIL: The patient was placed in left lateral decubitus position. Digital rectal exam was performed without abnormality. Scope was introduced and advanced atraumatically to the ileocecal valve. Scope was brought back through the ascending, transverse, descending colon, and retroflexed. There was some solid and liquid stool remaining and approximately 95% on the luminal surface could be seen. No evidence of old or new blood. No masses. No polyps. No diverticulosis. The patient tolerated the procedure well. Waldemar Del Cid MD /[id number]
== END 2019-09-19 09:35 | disposition home or self-care (01) ==
LOC: JP.SDS 06:38
PROVIDERS: ATTEND Surgery
DX: K63.89 Other specified diseases of intestine (principal); Z88.2 Allergy status to sulfonamides; Z91.040 Latex allergy status; Z88.6 Allergy status to analgesic agent
CPT/HCPCS: 45378; 81025; J2250; J2704; J3010; J7030

== ENCOUNTER 2019-09-22 06:15 | Day surgery (SDC) | payer MEDICAID ==
[2019-09-22] MEDS ORDERED: Bupivacaine 0.5% 50 ML MDV ONE (06:31)
[2019-09-22] MEDS ORDERED: Lidocaine 1% with EPINEPHrine 1:100,000 50 ML MDV ONE (06:31)
[2019-09-22] MEDS ORDERED: Dexamethasone 4 MG/ML SDV ONE (07:25)
[2019-09-22] MEDS ORDERED: Neostigmine Methylsulfate 1 MG/ML 5 ML Syringe ONE (07:25)
[2019-09-22] MEDS ORDERED: fentaNYL 250 MCG/5 ML SDV ONE (07:25)
[2019-09-22] MEDS ORDERED: Ondansetron 4 MG/2 ML SDV ONE (07:25)
[2019-09-22] MEDS ORDERED: Succinylcholine 200 MG/10 ML MDV ONE (07:25)
[2019-09-22] MEDS ORDERED: Glycopyrrolate 0.2 MG/ML 5 ML MDV ONE (07:25)
[2019-09-22] MEDS ORDERED: Rocuronium 50 MG/5 ML Vial ONE (07:25)
[2019-09-22] MEDS ORDERED: Propofol 200 MG/20 ML SDV ONE (07:25)
[2019-09-22] MEDS ORDERED: Ropivacaine 40 ML, dexAMETHasone 8 MG, EPINEPHrine 0.4 MG, Sodium Chloride 0.9% 37.6 ML NERVRT SCH ×4 (07:30)
[2019-09-22] MEDS ORDERED: metroNIDAZOLE/Normal Saline 500 MG in Premix Bag 1 BAG IV ONE (07:30)
[2019-09-22] MEDS ORDERED: ceFAZolin 2 GM in Premix Bag 1 BAG IV ONE (07:30)
[2019-09-22] MEDS ORDERED: Sodium Chloride 0.9% 1,000 ML IV SCH (07:30)
[2019-09-22] MEDS ORDERED: fentaNYL 100 MCG/2 ML SDV IVPUSH PRN (07:51)
[2019-09-22] MEDS ORDERED: hydrOXYzine HCL 100 MG/2 ML SDV IM PRN (07:51)
[2019-09-22] MEDS ORDERED: diphenhydrAMINE 50 MG/ML SDV IVPUSH PRN (07:51)
[2019-09-22] MEDS ORDERED: Bisacodyl 5 MG Tab PO PRN (07:51)
[2019-09-22] MEDS ORDERED: Benzocaine/Cetylpyridinium/Menthol Lozenge MUCMEM PRN (07:51)
[2019-09-22] MEDS ORDERED: Acetaminophen/HYDROcodone 325-5 MG Tab PO PRN (07:51)
[2019-09-22] MEDS ORDERED: fentaNYL 100 MCG/2 ML SDV ONE (08:54)
[2019-09-22] MEDS ORDERED: fentaNYL 100 MCG/2 ML SDV IVPUSH ONE (09:15)
[2019-09-22] MEDS ORDERED: hydrOXYzine HCL 100 MG/2 ML SDV IM ONE (09:15)
[2019-09-22 14:08] VITALS: BP 98/56; PULSE 62
--- NOTE | 2019-09-26 07:55 | OR ---
DATE OF PROCEDURE: 09/22/2019 SURGEON: Waldemar Del Cid MD PROCEDURE: Transversus abdominis plane block, bilaterally. COMPLICATIONS: None. CARE TAKER: None. RISKS: Risks, benefits, alternatives, and limitations including, but limited to infection, bleeding, and injury to abdominal structures were explained to the patient, who wished to proceed. PROCEDURE IN DETAIL: The patient was placed in supine position. The right side was addressed first. This was accessed using 11 megahertz ultrasound probe. 90% of this solution was injected in the right side. Left side was then performed in the same manner, same fashion, same technique, in the same sequence, and using the same equipment. The patient tolerated the procedure well. Waldemar Del Cid MD /[id number]
--- NOTE | 2019-09-26 08:01 | OR ---
DATE OF PROCEDURE: 09/22/2019 SURGEON: Waldemar Del Cid MD PROCEDURE: 1. Diagnostic laparoscopy. 2. Lysis of adhesions. 3. Repair of ventral hernia, incarcerated. COMPLICATIONS: None. CHAUFFEUR: None. ANESTHESIA: General. RISKS: Risks, benefits, alternatives, and limitations including, but not limited to infection, bleeding, injury to abdominal structures such as bowel, bladder, blood vessels, and other risks not listed here were explained to the patient, who wished to proceed. PROCEDURE IN DETAIL: The patient was placed in the supine position. On the left side, a Veress needle was used to enter the abdomen without abnormality. A drop test was performed without abnormality, and the abdomen was subsequently insufflated. This was followed by an Optiview trocar. Two additional 5 mm ports were placed, 1 in the right lower quadrant, 1 in the left upper abdomen. The patient's pain was mostly right abdomen and mid abdomen. It was readily identified that the patient had extensive adhesions, most likely causing pain in the right lower quadrant. These were lysed using Harmonic Scalpel equivalent. The hernia was then readily identified. This was approximately 1 to 2 cm in size. This contained fat and was noted to be incarcerated. However, this was removed and reduced without difficulty. The mesh was then inserted. This was a 10 x 15 cm piece of mesh, which was the smallest available mesh today. This was introduced, insufflated and tacked every 1 cm in a circumferential fashion with 2 rings with the abdominal wall. The balloon device was removed. The abdomen was reinspected for abnormality. None was noted. The air was removed. The wounds were irrigated and closed with 3-0 Vicryl and 4-0 Vicryl in interrupted running fashion. Waldemar Del Cid MD /[id number]
== END 2019-09-22 15:45 | disposition home or self-care (01) ==
LOC: JP.SDS 06:15 → JP.MS 10:15 → JP.SDS 15:45
PROVIDERS: ATTEND Surgery
DX: K43.6 Other and unspecified ventral hernia with obstruction, without gangrene (principal); F41.8 Other specified anxiety disorders; K00.7 Teething syndrome; Z88.2 Allergy status to sulfonamides; Z88.5 Allergy status to narcotic agent; Z91.040 Latex allergy status
CPT/HCPCS: 36415; 49653; 80048; 81025; A9270; C1713; C1781; J0171; J0330; J0690; J1100; J2405; J2704; J2710; J2795; J3010; J3410; J3490; J7030; J7050

== ENCOUNTER 2020-05-01 12:59 | Emergency (ER) | payer MEDICAID ==
[2020-05-01 13:50] VITALS: BP 129/75; PULSE 96
--- NOTE | 2020-05-01 14:15 | EDM.PDOC ---
ED HPI GENERAL MEDICAL PROBLEM - General Chief Complaint: Abdominal Pain Stated Complaint: UPPER ABD PAIN, SOB Time Seen by Provider: 05/01/20 13:55 Source of Information: Reports: Patient, Family History Limitations: Reports: No Limitations - History of Present Illness INITIAL COMMENTS - FREE TEXT/NARRATIVE: 44-year-old female with some vague left upper and left lateral abdominal pain for the past 24 hours. She fell onto her left side 3 days ago but did not think she was significantly injured. No nausea or vomiting, no urinary symptoms. Her mother insisted she be seen today because the pain was not improving. Does not radiate to the back, she has not had this pain in the past. She has no pain in the right abdomen. Onset: Gradual Duration: Day(s): (Started fairly gradually 2 days ago) Location: Reports: Abdomen (Left upper quadrant) Associated Symptoms: Reports: Malaise, Other (Decreased appetite). Denies: Chest Pain, Fever/Chills, Nausea/Vomiting, Weakness Left Upper Abdomen Pain Score (Numeric/FACES): 5 - Related Data Allergies Allergy/AdvReac Type Severity Reaction Status Date / Time Latex, Natural Rubber Allergy Rash Verified 05/01/20 13:39 morphine Allergy Swelling Verified 05/01/20 13:39 Sulfa (Sulfonamide Allergy Rash Verified 05/01/20 13:39 Antibiotics) Home Meds: Home Meds ALPRAZolam [Xanax] 1 mg PO TID PRN 12/07/13 [History] Ibuprofen 800 mg PO TID PRN 03/16/19 [History] tiZANidine HCl [Tizanidine HCl] 1 - 2 mg PO TID PRN 03/16/19 [History] Cetirizine HCl [Allergy Relief] 10 mg PO DAILY 06/29/19 [History] Cyanocobalamin (Vitamin B-12) [Vitamin B-12] 1,000 mcg SL DAILY 06/29/19 [History] Ergocalciferol (Vitamin D2) [Vitamin D2] 50,000 units PO Q7D 06/29/19 [History] Flunisolide 2 puff INH BID 06/29/19 [History] Fluticasone Propionate [Flonase] 2 spr IDALIA DAILY 06/29/19 [History] Ipratropium [place] 2 spr IDALIA TID PRN 06/29/19 [History] Triamcinolone Acetonide [Kenalog 0.1% Crm] 1 applic TOP TID 06/29/19 [History] traZODone HCl [Trazodone HCl] 25 - 50 mg PO BEDTIME PRN 07/01/19 [History] Cyclobenzaprine [Flexeril] 10 mg PO TID PRN 09/16/19 [History] Ferrous Sulfate [Iron] 325 mg PO BID 09/16/19 [History] Topiramate 25 mg PO BID 09/16/19 [History] Albuterol [Ventolin HFA] 1 puff IH Q4HR PRN 09/20/19 [History] Past Medical History HEENT History: Reports: Allergic Rhinitis Cardiovascular History: Reports: Angina, Hypertension Respiratory History: Reports: Asthma, Pneumonia, Recurrent Gastrointestinal History: Reports: None Genitourinary History: Reports: Pyelonephritis, UTI, Recurrent Other Genitourinary History: voiding only 2 times daily with abdominal pain 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 , Musculoskeletal History: Reports: Back Pain, Chronic, Fracture, Other (See Below) Other Musculoskeletal History: bulging discs in back, knee pain Neurological History: Reports: Migraines, Neuropathy, Peripheral Psychiatric History: Reports: Anxiety, Depression, Panic Attack Endocrine/Metabolic History: Reports: Obesity/BMI 30+ Hematologic History: Reports: Anemia, Blood Transfusion(s) Dermatologic History: Reports: Other (See Below) Other Dermatologic History: dermatitis - Infectious Disease History Infectious Disease History: Reports: Chicken Pox - Past Surgical History HEENT Surgical History: Reports: Oral Surgery GI Surgical History: Reports: Colonoscopy, EGD Female Surgical History: Reports: Section, Oophorectomy, Other (See Below) Other Female Surgeries/Procedures: tubal . cyst on ovary Social & Family History - Family History Respiratory: Reports: Asthma - Tobacco Use Tobacco Use Status *Q: Current Every Day Tobacco User Years of Tobacco use: 24 Packs/Tins Daily: 1 - Caffeine Use Caffeine Use: Reports: Coffee, Soda Other Caffeine Use: 2-3 pots a day -1 energy drink a day - Recreational Drug Use Recreational Drug Use: No ED ROS GENERAL - Review of Systems Review Of Systems: See Below Constitutional: Reports: Malaise, Decreased Appetite. Denies: Fever, Chills HEENT: Reports: No Symptoms Respiratory: Denies: Shortness of Breath Cardiovascular: Denies: Chest Pain GI/Abdominal: Reports: Abdominal Pain. Denies: Diarrhea, Nausea, Vomiting Skin: Reports: No Symptoms Neurological: Reports: No Symptoms. Denies: Headache ED EXAM, GI/ABD - Physical Exam Exam: See Below Exam Limited By: No Limitations General Appearance: Alert, No Apparent Distress Eyes: Bilateral: Normal Appearance Respiratory/Chest: No Respiratory Distress, Lungs Clear Cardiovascular: Regular Rate, Rhythm GI/Abdominal Exam: Soft, Tender (She does react with tenderness to palpation in the left upper quadrant but no significant guarding or rebound) Extremities: Normal Inspection Neurological: Alert, Oriented Psychiatric: Normal Affect, Normal Mood Course - Vital Signs Last Recorded V/S: Last Vital Signs Temp 97 F 05/01/20 13:49 Pulse 96 05/01/20 13:49 Resp 18 05/01/20 13:49 BP 129/75 05/01/20 13:49 Pulse Ox 98 05/01/20 13:49 - Orders/Labs/Meds Orders: Active Orders 24 hr Category Date Time Status CULTURE URINE [RM] Stat Lab 05/01/20 15:52 Received Labs: Laboratory Tests 05/01/20 05/01/20 05/01/20 Range/Units 14:26 14:26 14:26 WBC 8.1 (4.5-11.0) K/uL RBC 4.34 (3.30-5.50) M/uL Hgb 12.8 (12.0-15.0) g/dL Hct 39.3 (36.0-48.0) % MCV 91 (80-98) fL MCH 30 (27-31) pg MCHC 33 (32-36) % Plt Count 317 (150-400) K/uL Neut % (Auto) 60 (36-66) % Lymph % (Auto) 35 (24-44) % [place] % (Auto) 4 (2-6) % Eos % (Auto) 1 L (2-4) % Baso % (Auto) 0 (0-1) % Sodium 139 L (140-148) mmol/L Potassium 3.5 L (3.6-5.2) mmol/L Chloride 106 (100-108) mmol/L Carbon Dioxide 23 (21-32) mmol/L Anion Gap 13.5 (5.0-14.0) mmol/L BUN 4 L D (7-18) mg/dL Creatinine 1.0 (0.6-1.0) mg/dL Est Cr Clr Drug Dosing 55.30 mL/min Estimated GFR (MDRD) > 60 (>60) Glucose 100 (74-106) mg/dL Calcium 8.2 L (8.5-10.1) mg/dL Total Bilirubin 0.1 L (0.2-1.0) mg/dL AST 9 L (15-37) U/L ALT 18 (12-78) U/L Alkaline Phosphatase 54 (46-116) U/L Total Protein 6.4 (6.4-8.2) g/dL Albumin 3.3 L (3.4-5.0) g/dL Globulin 3.1 (2.3-3.5) g/dL Albumin/Globulin Ratio 1.1 L (1.2-2.2) Amylase 38 (25-115) U/L Lipase 69 L (73-393) U/L Urine Color (YELLOW) Urine Appearance (CLEAR) Urine pH (5.0-8.0) Ur Specific [place] (1.008-1.030) Urine Protein (NEGATIVE) mg/dL Urine Glucose (UA) (NEGATIVE) mg/dL Urine Ketones (NEGATIVE) mg/dL Urine Occult Blood (NEGATIVE) Urine Nitrite (NEGATIVE) Urine Bilirubin (NEGATIVE) Urine Urobilinogen (0.2-1.0) EU/dL Ur Leukocyte Esterase (NEGATIVE) Urine RBC (0-5) Urine WBC (0-5) Ur Epithelial Cells Amorphous Sediment Urine Bacteria Urine Mucus Urine Opiates Screen (NEGATIVE) Ur Oxycodone Screen (NEGATIVE) Urine Methadone Screen (NEGATIVE) Ur Propoxyphene Screen (NEGATIVE) Ur Barbiturates Screen (NEGATIVE) Ur Tricyclics Screen (NEGATIVE) Ur Phencyclidine Scrn (NEGATIVE) Ur Amphetamine Screen (NEGATIVE) U Methamphetamines Scrn (NEGATIVE) Urine MDMA Screen (NEGATIVE) U Benzodiazepines Scrn (NEGATIVE) U Cocaine Metab Screen (NEGATIVE) U Marijuana (THC) Screen (NEGATIVE) 05/01/20 05/01/20 Range/Units 15:28 15:28 WBC (4.5-11.0) K/uL RBC (3.30-5.50) M/uL Hgb (12.0-15.0) g/dL Hct (36.0-48.0) % MCV (80-98) fL MCH (27-31) pg MCHC (32-36) % Plt Count (150-400) K/uL Neut % (Auto) (36-66) % Lymph % (Auto) (24-44) % [place] % (Auto) (2-6) % Eos % (Auto) (2-4) % Baso % (Auto) (0-1) % Sodium (140-148) mmol/L Potassium (3.6-5.2) mmol/L Chloride (100-108) mmol/L Carbon Dioxide (21-32) mmol/L Anion Gap (5.0-14.0) mmol/L BUN (7-18) mg/dL Creatinine (0.6-1.0) mg/dL Est Cr Clr Drug Dosing mL/min Estimated GFR (MDRD) (>60) Glucose (74-106) mg/dL Calcium (8.5-10.1) mg/dL Total Bilirubin (0.2-1.0) mg/dL AST (15-37) U/L ALT (12-78) U/L Alkaline Phosphatase (46-116) U/L Total Protein (6.4-8.2) g/dL Albumin (3.4-5.0) g/dL Globulin (2.3-3.5) g/dL Albumin/Globulin Ratio (1.2-2.2) Amylase (25-115) U/L Lipase (73-393) U/L Urine Color Yellow (YELLOW) Urine Appearance Cloudy A (CLEAR) Urine pH 7.0 (5.0-8.0) Ur Specific [place] 1.015 (1.008-1.030) Urine Protein Negative (NEGATIVE) mg/dL Urine Glucose (UA) Negative (NEGATIVE) mg/dL Urine Ketones Negative (NEGATIVE) mg/dL Urine Occult Blood Negative (NEGATIVE) Urine Nitrite Negative (NEGATIVE) Urine Bilirubin Negative (NEGATIVE) Urine Urobilinogen 0.2 (0.2-1.0) EU/dL Ur Leukocyte Esterase Moderate H (NEGATIVE) Urine RBC 0-5 (0-5) Urine WBC 20-30 H (0-5) Ur Epithelial Cells Many Amorphous Sediment Few Urine Bacteria Many Urine Mucus Not seen Urine Opiates Screen Negative (NEGATIVE) Ur Oxycodone Screen Negative (NEGATIVE) Urine Methadone Screen Negative (NEGATIVE) Ur Propoxyphene Screen Negative (NEGATIVE) Ur Barbiturates Screen Negative (NEGATIVE) Ur Tricyclics Screen Negative (NEGATIVE) Ur Phencyclidine Scrn Negative (NEGATIVE) Ur Amphetamine Screen Negative (NEGATIVE) U Methamphetamines Scrn Negative (NEGATIVE) Urine MDMA Screen Negative (NEGATIVE) U Benzodiazepines Scrn Presumptive positive H (NEGATIVE) U Cocaine Metab Screen Negative (NEGATIVE) U Marijuana (THC) Screen Negative (NEGATIVE) - Re-Assessments/Exams Free Text/Narrative Re-Assessment/Exam: 05/01/20 14:15 A [id number] ultrasound showed no abnormality, no free fluid in the abdomen. She did not seem pertinently tender to pressure from the ultrasound probe. A UA, urine drug screen, CBC, CMP, amylase and lipase were drawn. 05/01/20 15:52 All labs are reassuring other than some bacteriuria and WBCs in the urine. A urine culture was ordered, patient will be placed on Macrobid twice daily for 7 days and encouraged to take a daily 20 mg omeprazole for 2 weeks. Return anytime if worsening despite treatment. Departure - Departure Time of Disposition: 17:02 Disposition: Home, Self-Care 01 Clinical Impression: UTI (urinary tract infection) Qualifiers: Urinary tract infection type: acute cystitis Hematuria presence: without hem aturia Qualified Code(s): N30.00 - Acute cystitis without hematuria - Discharge Information Instructions: Abdominal Pain, Adult, [id number] Referrals: Dennis Art MD [Primary Care Provider] - Forms: ED Department Discharge Care Plan Goals: Take antibiotic twice daily as prescribed, and start 20 mg of omeprazole daily for at least 2 weeks. Return anytime if worsening such as increased pain or fever, or consider rechecking in 1 to 2 weeks if not improving satisfactorily. Sepsis Event Note (ED) - Evaluation Sepsis Screening Result: No Definite Risk - Focused Exam Vital Signs: Vital Signs Temp Pulse Resp BP Pulse Ox 05/01/20 13:49 97 F 96 18 129/75 98 - My Orders Last 24 Hours: My Active Orders 05/01/20 15:52 CULTURE URINE [RM] Stat - Assessment/Plan Last 24 Hours: My Active Orders 05/01/20 15:52 CULTURE URINE [RM] Stat
== END 2020-05-01 17:02 | disposition home or self-care (01) ==
LOC: JP.ED 12:59
DX: N30.00 Acute cystitis without hematuria (principal); I10 Essential (primary) hypertension; J45.909 Unspecified asthma, uncomplicated; F41.9 Anxiety disorder, unspecified; F32.9 Major depressive disorder, single episode, unspecified; E66.9 Obesity, unspecified; Z68.31 Body mass index [BMI] 31.0-31.9, adult; F17.210 Nicotine dependence, cigarettes, uncomplicated; Z91.040 Latex allergy status; Z88.5 Allergy status to narcotic agent; Z88.2 Allergy status to sulfonamides; Z79.899 Other long term (current) drug therapy
CPT/HCPCS: 36415; 80053; 80305-QW; 81001; 82150; 83690; 85025; 87086; 99284

== ENCOUNTER 2020-07-07 23:59 | Emergency (ER) | payer MEDICAID ==
[2020-07-08 00:08] VITALS: BP 137/96; PULSE 101
--- NOTE | 2020-07-08 00:34 | EDM.PDOCBH ---
ED HPI GENERAL MEDICAL PROBLEM - General Chief Complaint: Behavioral/Psych Stated Complaint: MEDICAL VIA [facility] Time Seen by Provider: 07/08/20 00:15 Source of Information: Reports: Patient, EMS History Limitations: Reports: No Limitations - History of Present Illness INITIAL COMMENTS - FREE TEXT/NARRATIVE: 44-year-old female with chronic anxiety, had some type of confrontation with her family at home and had an abrupt onset of anxiety, shortness of breath, sensation of passing out in the family called the ambulance. On arrival they found her "freaking out", hyperventilating and extremely anxious. She had taken one of her Ativan however and by the time she got to the emergency room she was feeling better. Apparently her systolic blood pressure was in the 170s at home so they felt they should bring her in to be evaluated, it is now normalized. Onset: Unknown/Unsure Associated Symptoms: Reports: Malaise, Shortness of Breath, Weakness - Related Data Allergies Allergy/AdvReac Type Severity Reaction Status Date / Time Latex, Natural Rubber Allergy Rash Verified 07/08/20 00:21 morphine Allergy Swelling Verified 07/08/20 00:21 Sulfa (Sulfonamide Allergy Rash Verified 07/08/20 00:21 Antibiotics) Home Meds: Home Meds ALPRAZolam [Xanax] 1 mg PO TID PRN 12/07/13 [History] Ibuprofen 800 mg PO TID PRN 03/16/19 [History] tiZANidine HCl [Tizanidine HCl] 1 - 2 mg PO TID PRN 03/16/19 [History] Cetirizine HCl [Allergy Relief] 10 mg PO DAILY 06/29/19 [History] Cyanocobalamin (Vitamin B-12) [Vitamin B-12] 1,000 mcg SL DAILY 06/29/19 [History] Ergocalciferol (Vitamin D2) [Vitamin D2] 50,000 units PO Q7D 06/29/19 [History] Flunisolide 2 puff INH BID 06/29/19 [History] Fluticasone Propionate [Flonase] 2 spr IDALIA DAILY 06/29/19 [History] Ipratropium [place] 2 spr IDALIA TID PRN 06/29/19 [History] Triamcinolone Acetonide [Kenalog 0.1% Crm] 1 applic TOP TID 06/29/19 [History] traZODone HCl [Trazodone HCl] 25 - 50 mg PO BEDTIME PRN 07/01/19 [History] Cyclobenzaprine [Flexeril] 10 mg PO TID PRN 09/16/19 [History] Ferrous Sulfate [Iron] 325 mg PO BID 09/16/19 [History] Topiramate 25 mg PO BID 09/16/19 [History] Albuterol [Ventolin HFA] 1 puff IH Q4HR PRN 09/20/19 [History] Past Medical History HEENT History: Reports: Allergic Rhinitis Cardiovascular History: Reports: Angina, Hypertension Respiratory History: Reports: Asthma, Pneumonia, Recurrent Gastrointestinal History: Reports: None Genitourinary History: Reports: Pyelonephritis, UTI, Recurrent Other Genitourinary History: voiding only 2 times daily with abdominal pain 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 , Musculoskeletal History: Reports: Back Pain, Chronic, Fracture, Other (See Below) Other Musculoskeletal History: bulging discs in back, knee pain Neurological History: Reports: Migraines, Neuropathy, Peripheral Psychiatric History: Reports: Anxiety, Depression, Panic Attack Endocrine/Metabolic History: Reports: Obesity/BMI 30+ Hematologic History: Reports: Anemia, Blood Transfusion(s) Dermatologic History: Reports: Other (See Below) Other Dermatologic History: dermatitis - Infectious Disease History Infectious Disease History: Reports: Chicken Pox - Past Surgical History HEENT Surgical History: Reports: Oral Surgery Cardiovascular Surgical History: Reports: None Respiratory Surgical History: Reports: None GI Surgical History: Reports: Colonoscopy, EGD Female Surgical History: Reports: Section, Oophorectomy, Other (See Below) Other Female Surgeries/Procedures: tubal . cyst on ovary Endocrine Surgical History: Reports: None Neurological Surgical History: Reports: None Musculoskeletal Surgical History: Reports: None Dermatological Surgical History: Reports: None Social & Family History - Family History Respiratory: Reports: Asthma - Tobacco Use Tobacco Use Status *Q: Current Every Day Tobacco User Years of Tobacco use: 25 Packs/Tins Daily: 1 - Caffeine Use Caffeine Use: Reports: Coffee, Soda, Tea Other Caffeine Use: 2-3 pots a day -1 energy drink a day - Recreational Drug Use Recreational Drug Type: Reports: Xanax ED ROS GENERAL - Review of Systems Review Of Systems: See Below Constitutional: Reports: Malaise. Denies: Fever, Chills HEENT: Denies: Throat Pain Respiratory: Reports: Shortness of Breath Cardiovascular: Reports: Palpitations GI/Abdominal: Denies: Nausea, Vomiting : Reports: No Symptoms Neurological: Reports: Dizziness, Syncope (Near syncope), Weakness Psychiatric: Reports: Anxiety ED EXAM, BEHAVIORAL HEALTH - Physical Exam Exam: See Below Exam Limited By: No Limitations General Appearance: Alert, No Apparent Distress Eye Exam: Bilateral Eye: Normal Inspection Respiratory/Chest: No Respiratory Distress, Lungs Clear Cardiovascular: Regular Rate, Rhythm. No: Tachycardia GI/Abdominal: Soft, Non-Tender Extremities: No: Pedal Edema Neurological: Alert, Oriented x 3 Psychiatric: Alert, Normal Affect Skin Exam: Warm, Dry COURSE, BEHAVIORAL HEALTH COMP - Course Vital Signs: Last Vital Signs Temp 98.8 F 07/08/20 00:07 Pulse 101 H 07/08/20 00:07 Resp 16 07/08/20 00:07 BP 137/96 H 07/08/20 00:07 Pulse Ox Re-Assessment/Re-Exam: This patient has been evaluated here several times for anxiety over the years, she has numerous medications for psychiatric issues and anxiety. No further work-up or treatment is necessary as she has normalized and is stable Departure - Departure Time of Disposition: 06:44 Disposition: Home, Self-Care 01 Clinical Impression: Anxiety, Hyperventilation syndrome - Discharge Information Instructions: Hyperventilation Referrals: PCP,None [Primary Care Provider] - Forms: ED Department Discharge Care Plan Goals: Continue your current medications as prescribed, increase activity as tolerated and return anytime if worsening or concerns. Sepsis Event Note (ED) - Evaluation Sepsis Screening Result: No Definite Risk
== END 2020-07-08 06:45 | disposition home or self-care (01) ==
LOC: JP.ED 23:59
DX: F41.9 Anxiety disorder, unspecified (principal); F45.8 Other somatoform disorders; I10 Essential (primary) hypertension; G62.9 Polyneuropathy, unspecified; E66.9 Obesity, unspecified; J45.909 Unspecified asthma, uncomplicated; Z91.040 Latex allergy status; Z88.5 Allergy status to narcotic agent; Z88.2 Allergy status to sulfonamides; Z79.899 Other long term (current) drug therapy; Z72.0 Tobacco use
CPT/HCPCS: 99282; 99284

== ENCOUNTER 2020-07-11 22:53 | Emergency (ER) | payer MEDICAID ==
[2020-07-11 23:07] VITALS: BP 163/97; PULSE 84
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
--- NOTE | 2020-07-11 23:56 | CRLCT ---
INDICATION: Change in speech TECHNIQUE: CT head without contrast. COMPARISON: Head CT 02/14/2010 FINDINGS: CSF spaces: Within normal limits for age. Brain parenchyma: The bermudez-white differentiation is normal. No sign of mass, hemorrhage, or midline shift. Skull base and calvarium: The visualized paranasal sinuses and mastoid air cells demonstrate no acute or significant findings. The visualized orbits are grossly unremarkable. No skull fractures. IMPRESSION: Unremarkable noncontrast head CT. Please note that all CT scans at this facility use dose modulation, iterative reconstruction, and/or weight-based dosing when appropriate to reduce radiation dose to as low as reasonably achievable. Dictated by Ryley Klein MD @ Jul 11 2020 11:51PM Signed by Dr. Ryley Klein @ Jul 11 2020 11:55PM
== END 2020-07-12 01:53 | disposition home or self-care (01) ==
LOC: JP.ED 22:53
DX: R47.01 Aphasia (principal); J45.909 Unspecified asthma, uncomplicated; I10 Essential (primary) hypertension; G62.9 Polyneuropathy, unspecified; E66.9 Obesity, unspecified; Z68.29 Body mass index [BMI] 29.0-29.9, adult; Z91.040 Latex allergy status; Z88.5 Allergy status to narcotic agent; Z88.2 Allergy status to sulfonamides; Z72.0 Tobacco use
CPT/HCPCS: 36415; 70450; 80053; 80307; 81001; 82140; 83605; 83735; 84100; 85025; 85610; 85651; 86140; 99283; 99285-25

== ENCOUNTER 2020-08-18 10:12 | Emergency (ER) | payer MEDICAID ==
[2020-08-18 10:38] VITALS: BP 126/85; PULSE 76
[2020-08-18] MEDS ORDERED: LORazepam 2 MG/ML SDV IM ONE (11:01)
--- NOTE | 2020-08-18 11:06 | EDM.PDOC ---
ED HPI GENERAL MEDICAL PROBLEM - General Chief Complaint: General Stated Complaint: PANIC ATTACK Time Seen by Provider: 08/18/20 11:01 Source of Information: Reports: Patient, Old Records, RN Notes Reviewed History Limitations: Reports: No Limitations - History of Present Illness INITIAL COMMENTS - FREE TEXT/NARRATIVE: 44-year-old female presents emergency department a complaint of anxiety she follows with the clinic [facility] she does take Xanax 1 tablet 3 times a day she received 90 tablets on 25 July is not due for refill until August 24 she did receive a 30-day supply her insurance company and pharmacy will not fill early. I did review the [place] prescription drug monitoring program she is at 310 score - Related Data Allergies Allergy/AdvReac Type Severity Reaction Status Date / Time Latex, Natural Rubber Allergy Rash Verified 08/18/20 10:42 morphine Allergy Swelling Verified 08/18/20 10:42 Sulfa (Sulfonamide Allergy Rash Verified 08/18/20 10:42 Antibiotics) Home Meds: Home Meds ALPRAZolam [Xanax] 1 mg PO TID PRN 12/07/13 [History] Ibuprofen 800 mg PO TID PRN 03/16/19 [History] tiZANidine HCl [Tizanidine HCl] 1 - 2 mg PO TID PRN 03/16/19 [History] Cetirizine HCl [Allergy Relief] 10 mg PO DAILY 06/29/19 [History] Cyanocobalamin (Vitamin B-12) [Vitamin B-12] 1,000 mcg SL DAILY 06/29/19 [History] Ergocalciferol (Vitamin D2) [Vitamin D2] 50,000 units PO Q7D 06/29/19 [History] Flunisolide 2 puff INH BID 06/29/19 [History] Fluticasone Propionate [Flonase] 2 spr IDALIA DAILY 06/29/19 [History] Ipratropium [place] 2 spr IDALIA TID PRN 06/29/19 [History] Triamcinolone Acetonide [Kenalog 0.1% Crm] 1 applic TOP TID 06/29/19 [History] traZODone HCl [Trazodone HCl] 25 - 50 mg PO BEDTIME PRN 07/01/19 [History] Cyclobenzaprine [Flexeril] 10 mg PO TID PRN 09/16/19 [History] Ferrous Sulfate [Iron] 325 mg PO BID 09/16/19 [History] Topiramate 25 mg PO BID 09/16/19 [History] Albuterol [Ventolin HFA] 1 puff IH Q4HR PRN 09/20/19 [History] Past Medical History HEENT History: Reports: Allergic Rhinitis Cardiovascular History: Reports: Angina, Hypertension Respiratory History: Reports: Asthma, Pneumonia, Recurrent Gastrointestinal History: Reports: None Genitourinary History: Reports: Pyelonephritis, UTI, Recurrent Other Genitourinary History: voiding only 2 times daily with abdominal pain [employer]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 , Musculoskeletal History: Reports: Back Pain, Chronic, Fracture, Other (See Below) Other Musculoskeletal History: bulging discs in back, knee pain Neurological History: Reports: Migraines, Neuropathy, Peripheral Psychiatric History: Reports: Anxiety, Depression, Panic Attack Endocrine/Metabolic History: Reports: Obesity/BMI 30+ Hematologic History: Reports: Anemia, Blood Transfusion(s) Dermatologic History: Reports: Other (See Below) Other Dermatologic History: dermatitis - Infectious Disease History Infectious Disease History: Reports: Chicken Pox - Past Surgical History HEENT Surgical History: Reports: Oral Surgery GI Surgical History: Reports: Colonoscopy, EGD Female Surgical History: Reports: Section, Oophorectomy, Other (See Below) Other Female Surgeries/Procedures: tubal . cyst on ovary Musculoskeletal Surgical History: Reports: None Social & Family History - Family History Respiratory: Reports: Asthma - Tobacco Use Tobacco Use Status *Q: Heavy Tobacco User Years of Tobacco use: 28 Packs/Tins Daily: 1 - Caffeine Use Caffeine Use: Reports: Soda Other Caffeine Use: 2-3 pots a day -1 energy drink a day - Recreational Drug Use Recreational Drug Use: No ED ROS GENERAL - Review of Systems Review Of Systems: See Below Constitutional: Reports: No Symptoms Respiratory: Reports: No Symptoms Cardiovascular: Reports: No Symptoms Psychiatric: Reports: Anxiety ED EXAM, GENERAL - Physical Exam Exam: See Below Free Text/Narrative:: Orientated to person place and time, appropriately dressed, disheveled, memory to recent and remote events intact, poor attention and concentration, speech is of adequate rate tone and volume, good fund of knowledge, language is appropriate, Mood and affect are euthymic, no pressured thoughts, denies suicidal ideation, denies homicidal ideation, no hallucinations visual or auditory, poor judgment, poor insight Exam Limited By: No Limitations General Appearance: Alert, Anxious Course - Vital Signs Last Recorded V/S: Last Vital Signs Temp 97.8 F 08/18/20 10:41 Pulse 76 08/18/20 10:41 Resp 14 08/18/20 10:41 BP 126/85 08/18/20 10:41 Pulse Ox 100 08/18/20 10:41 - Orders/Labs/Meds Orders: Active Orders 24 hr Category Date Time Status LORazepam [Ativan] Med 08/18/20 11:01 Once 1 mg IM ONETIME ONE Departure - Departure Time of Disposition: 11:05 Disposition: Home, Self-Care 01 Condition: Poor Clinical Impression: Generalized anxiety disorder - Discharge Information Instructions: Generalized Anxiety Disorder, Adult Referrals: Shona Coelho NP [Primary Care Provider] - Additional Instructions: Please contact your provider on Thursday for further evaluation Sepsis Event Note (ED) - Evaluation Sepsis Screening Result: No Definite Risk - Focused Exam Vital Signs: Vital Signs Temp Pulse Resp BP Pulse Ox 08/18/20 10:41 97.8 F 76 14 126/85 100 08/18/20 10:36 97.8 F 76 14 126/85 100 - My Orders Last 24 Hours: My Active Orders 08/18/20 11:01 LORazepam [Ativan] 1 mg IM ONETIME ONE - Assessment/Plan Last 24 Hours: My Active Orders 08/18/20 11:01 LORazepam [Ativan] 1 mg IM ONETIME ONE Plan: Assessment Acuity = acute Site and laterality = generalized anxiety disorder Etiology = medication misuse with Xanax currently out of medications Manifestations = none Location of injury = Home Lab values = none Plan She states she contacted the pharmacy they recommend she go to the emergency department she also called the nurses line at [facility] recommended that she report to the emergency department for evaluation. I did review her on [place] prescription drug monitoring program she is not due to refill of her Xanax tell August 24 this is an indication of misuse of medications I cannot fill her medications early I did provide her 1 mg Ativan x1 This note was dictated using [employer] voice recognition software please call with any questions on syntax or grammar.
== END 2020-08-18 11:16 | disposition home or self-care (01) ==
LOC: JP.ED 10:12
DX: F41.1 Generalized anxiety disorder (principal); I10 Essential (primary) hypertension; J45.909 Unspecified asthma, uncomplicated; D64.9 Anemia, unspecified; E66.9 Obesity, unspecified; Z68.30 Body mass index [BMI] 30.0-30.9, adult; Z72.0 Tobacco use; Z91.040 Latex allergy status; Z88.5 Allergy status to narcotic agent; Z88.2 Allergy status to sulfonamides; Z79.899 Other long term (current) drug therapy
CPT/HCPCS: 96372; 99283; J2060

== ENCOUNTER 2021-03-07 21:04 | Emergency (ER) | payer MEDICAID ==
--- NOTE | 2021-03-07 22:16 | EDM.PDOC ---
ED HPI GENERAL MEDICAL PROBLEM - General Chief Complaint: General Stated Complaint: STOMACH PAIN Time Seen by Provider: 03/07/21 21:43 Source of Information: Reports: Patient, Old Records History Limitations: Reports: No Limitations - History of Present Illness INITIAL COMMENTS - FREE TEXT/NARRATIVE: Christie is a 45-year-old female presenting to the ED for evaluation of right-sided pelvic pain and vaginal bleeding that started 2 weeks ago. She was seen in the [facility] walk-in clinic yesterday and was evaluated for the same. She reports that she is getting this right pelvic pain the last 10 to 15 minutes 4-5 times a day. Its not associated with any particular activity. She has had a diminished appetite but denies any nausea, vomiting, diarrhea, or constipation. She states that she has normal bowel movement every 2 days which has been her main stay of habit. She does report that she has 1 tube and one ovary after she had a salpingo-oophorectomy for an ectopic years ago. She also has a previous history for uterine fibroids. She states that because she only has 1 ovary that she normally has a period that last 3 days every month. Of note, she is on medroxyprogesterone daily for 3 weeks and off for 1. This was recently restarted about a month ago. Appears from the [place] note that they wanted her to follow-up with her [employer]. Patient is under the impression that this appointment was made for her for March 15, however, there is no evidence of this in the [facility] epic chart. Work-up yesterday did reveal that she had a very mild urinary tract infection. Patient was also told that she has some kind of kidney dysfunction that was discovered on a two-view abdomen x-ray. left sided abd Pain Score (Numeric/FACES): 7 - Related Data Allergies Allergy/AdvReac Type Severity Reaction Status Date / Time Latex, Natural Rubber Allergy Rash Verified 03/07/21 21:36 morphine Allergy Swelling Verified 03/07/21 21:36 Sulfa (Sulfonamide Allergy Rash Verified 03/07/21 21:36 Antibiotics) Home Meds: Home Meds ALPRAZolam [Xanax] 1 mg PO TID PRN 12/07/13 [History] Ibuprofen 800 mg PO TID PRN 03/16/19 [History] Cetirizine HCl [Allergy Relief] 10 mg PO DAILY 06/29/19 [History] Cyanocobalamin (Vitamin B-12) [Vitamin B-12] 1,000 mcg SL DAILY 06/29/19 [History] Ergocalciferol (Vitamin D2) [Vitamin D2] 50,000 units PO Q7D 06/29/19 [History] Ipratropium [place] 2 spr IDALIA TID PRN 06/29/19 [History] Triamcinolone Acetonide [Kenalog 0.1% Crm] 1 applic TOP TID 06/29/19 [History] traZODone HCl [Trazodone HCl] 25 - 50 mg PO BEDTIME PRN 07/01/19 [History] Cyclobenzaprine [Flexeril] 10 mg PO TID PRN 09/16/19 [History] Ferrous Sulfate [Iron] 325 mg PO BID 09/16/19 [History] Topiramate 50 mg PO BID 09/16/19 [History] Albuterol [Ventolin HFA] 1 puff IH Q4HR PRN 09/20/19 [History] Ciprofloxacin HCl [Cipro] 500 mg PO BID 03/07/21 [History] HCTZ/Triamterene [Dyazide 25-37.5 MG] 1 cap PO DAILY PRN 03/07/21 [History] Prazosin HCl [Prazosin] 2 mg PO BEDTIME 03/07/21 [History] Past Medical History HEENT History: Reports: Allergic Rhinitis Cardiovascular History: Reports: Angina, Hypertension Respiratory History: Reports: Asthma, Pneumonia, Recurrent Gastrointestinal History: Reports: None Genitourinary History: Reports: Pyelonephritis, UTI, Recurrent Other Genitourinary History: voiding only 2 times daily with abdominal pain [employer] History: Reports: Ectopic , Musculoskeletal History: Reports: Back Pain, Chronic, Fracture, Other (See Below) Other Musculoskeletal History: bulging discs in back, knee pain Neurological History: Reports: Migraines, Neuropathy, Peripheral Psychiatric History: Reports: Anxiety, Depression, Panic Attack Endocrine/Metabolic History: Reports: Obesity/BMI 30+ Hematologic History: Reports: Anemia, Blood Transfusion(s) Dermatologic History: Reports: Other (See Below) Other Dermatologic History: dermatitis - Infectious Disease History Infectious Disease History: Reports: Chicken Pox - Past Surgical History HEENT Surgical History: Reports: Oral Surgery GI Surgical History: Reports: Colonoscopy, EGD Female Surgical History: Reports: Section, Oophorectomy, Other (See Below) Other Female Surgeries/Procedures: tubal . cyst on ovary Musculoskeletal Surgical History: Reports: None Social & Family History - Family History Respiratory: Reports: Asthma - Caffeine Use Caffeine Use: Reports: Soda Other Caffeine Use: 2-3 pots a day -1 energy drink a day ED ROS GENERAL - Review of Systems Review Of Systems: See Below Constitutional: Reports: Decreased Appetite HEENT: Reports: No Symptoms Respiratory: Reports: No Symptoms Cardiovascular: Reports: No Symptoms Endocrine: Reports: No Symptoms GI/Abdominal: Reports: Abdominal Pain (Right pelvic and suprapubic region lasting 10 to 15 minutes occurring 4-5 times / day. She describes the pain as sharp and stabbing.). Denies: Constipation, Diarrhea, Hematemesis, Hematochezia, Nausea, Vomiting : Reports: Irregular Menses (Menstrual flow for the last 2 weeks using 2-3 pads per day) Musculoskeletal: Reports: No Symptoms Skin: Reports: No Symptoms Neurological: Reports: No Symptoms Psychiatric: Reports: No Symptoms Hematologic/Lymphatic: Reports: No Symptoms Immunologic: Reports: No Symptoms ED EXAM, GENERAL - Physical Exam Exam: See Below Exam Limited By: No Limitations General Appearance: Alert, Anxious Eye Exam: Bilateral Eye: EOMI, PERRL Head: Atraumatic, Normocephalic Neck: Normal Inspection, Supple Respiratory/Chest: No Respiratory Distress, Lungs Clear, Normal Breath Sounds Cardiovascular: Normal Peripheral Pulses, Regular Rate, Rhythm, No Murmur GI/Abdominal: Normal Bowel Sounds, Soft, Tender (Tenderness just above the pubic rim on the right). No: Guarding, Rigid, Rebound Back Exam: Normal Inspection, Full Range of Motion Extremities: Normal Inspection, Normal Range of Motion Neurological: Alert, Oriented, Normal Cognition, No Motor/Sensory Deficits Skin Exam: Warm, Dry Course - Vital Signs Last Recorded V/S: Last Vital Signs Temp 36.5 C 03/07/21 22:25 Pulse 87 03/07/21 22:25 Resp 13 03/07/21 22:25 BP 133/92 H 03/07/21 22:25 Pulse Ox 99 03/07/21 22:25 - Orders/Labs/Meds Orders: Active Orders 24 hr Category Date Time Status Pelvis Non OB Comp [US] Stat Exams 03/07/21 22:05 Ordered Labs: Laboratory Tests 03/07/21 03/07/21 Range/Units 22:05 22:15 WBC 8.2 (4.5-11.0) K/uL RBC 4.50 (3.30-5.50) M/uL Hgb 13.3 (12.0-15.0) g/dL Hct 40.3 (36.0-48.0) % MCV 90 (80-98) fL MCH 30 (27-31) pg MCHC 33 (32-36) % Plt Count 315 (150-400) K/uL Neut % (Auto) 54.1 (36-66) % Lymph % (Auto) 36.7 (24-44) % [place] % (Auto) 6.3 H (2-6) % Eos % (Auto) 2.4 (2-4) % Baso % (Auto) 0.5 (0-1) % Sodium 140 (140-148) mmol/L Potassium 3.4 L (3.6-5.2) mmol/L Chloride 106 (100-108) mmol/L Carbon Dioxide 23 (21-32) mmol/L Anion Gap 14.4 H (5.0-14.0) mmol/L BUN 8 (7-18) mg/dL Creatinine 1.0 (0.6-1.0) mg/dL Est Cr Clr Drug Dosing 54.74 mL/min Estimated GFR (MDRD) > 60 (>60) Glucose 103 (74-106) mg/dL Calcium 8.4 L (8.5-10.1) mg/dL Total Bilirubin 0.2 (0.2-1.0) mg/dL AST 11 L (15-37) U/L ALT 19 (12-78) U/L Alkaline Phosphatase 44 L (46-116) U/L Total Protein 6.7 (6.4-8.2) g/dL Albumin 3.5 (3.4-5.0) g/dL Globulin 3.2 (2.3-3.5) g/dL Albumin/Globulin Ratio 1.1 L (1.2-2.2) - Radiology Interpretation Free Text/Narrative:: I reviewed the imaging from the ultrasound of the pelvis. The endometrium appeared to be normal for thickness. There was considerable amount of fluid at the cervix. There was no evidence for any large leiomyomas. Patient has status post right salpingo-oophorectomy. There is a normal-appearing left ovary with a follicle apparent. There is a mild amount of free fluid in the pelvis. - Re-Assessments/Exams Free Text/Narrative Re-Assessment/Exam: 03/07/21 23:23 I reviewed the patient's labs showing a normal CBC with a hemoglobin of 13.3 and a hematocrit of 40.3. Her platelet count is 315,000 and her leukocyte count is 8.2. Her comprehensive metabolic panel is also normal. I reviewed the images from the ultrasound of the pelvis with a normal endometrial stripe. There is a fair amount of fluid at the cervix. She is status post right oophorectomy and salpingectomy from a previous ectopic . She does have a small follicle measuring about a centimeter in the left ovary which is normal size. There is a small amount of free fluid in the pelvis. There is no evidence for any large leiomyomas. At this point, I recommend the patient follow-up with an SUPPLIER ENGINEER like Dr. Peraza. She will need to call and make that appointment. Her pain is likely due to the inflammation from her menses. It is likely that she is having ovarian failure causing menopause leading to the dysfunctional uterine bleeding. We will put her on a course of Toradol to reduce the inflammation in the pelvis. This has been sent out to the [facility] machine. Departure - Departure Time of Disposition: 23:25 Disposition: Home, Self-Care 01 Clinical Impression: Dysfunctional uterine bleeding - Discharge Information Instructions: Pelvic Pain, Female, [id number], Abnormal Uterine Bleeding, [id number] Referrals: PCP,None [Primary Care Provider] - Forms: ED Department Discharge Care Plan Goals: I recommend calling your SUPPLIER ENGINEER and following up as soon as possible. Your pain is likely resulting from reflux of blood from the dysfunctional uterine bleeding causing inflammation in the pelvis. Although your bleeding, your cell counts and your blood work remains stable so there is no need for emergent work-up. I have prescribed Toradol 10 mg 4 times a day to help with pain. This has been sent out to the [facility] machine so you may start it tonight. Sepsis Event Note (ED) - Focused Exam Vital Signs: Vital Signs Temp Pulse Resp BP Pulse Ox 03/07/21 22:25 36.5 C 87 13 133/92 H 99 03/07/21 21:10 36.5 C 87 13 133/92 H 99 - Problem List & Annotations (1) Dysfunctional uterine bleeding SNOMED Code(s): 49246598542235 Code(s): N93.8 - OTHER SPECIFIED ABNORMAL UTERINE AND VAGINAL BLEEDING Status: Acute Priority: Medium Current Visit: Yes - Problem List Review Problem List Initiated/Reviewed/Updated: Yes - My Orders Last 24 Hours: My Active Orders 03/07/21 22:05 Pelvis Non OB Comp [US] Stat - Assessment/Plan Last 24 Hours: My Active Orders 03/07/21 22:05 Pelvis Non OB Comp [US] Stat
[2021-03-07 22:25] VITALS: BP 133/92; PULSE 87
--- NOTE | 2021-03-08 09:57 | US ---
Pelvis Non OB Comp CLINICAL HISTORY: Vaginal bleeding FINDINGS: Real-time transabdominal images were obtained through the pelvis. Uterus measures 6.9 x 5.1 x 3.7 cm. Endotracheal thickness is 5 mm. Right ovary has been removed. Left ovary measures 3.5 x 2.1 x 2.7 cm. There is a 2.3 x 1.4 cm cyst. No free fluid seen IMPRESSION: Previous right oophorectomy. Small left ovarian cyst Normal-appearing uterus No mass or abnormal fluid collections
== END 2021-03-07 23:42 | disposition home or self-care (01) ==
LOC: JP.ED 21:04
DX: N93.8 Other specified abnormal uterine and vaginal bleeding (principal); I10 Essential (primary) hypertension; J45.909 Unspecified asthma, uncomplicated; E66.9 Obesity, unspecified; Z68.30 Body mass index [BMI] 30.0-30.9, adult; Z91.048 Other nonmedicinal substance allergy status; Z88.2 Allergy status to sulfonamides; Z88.5 Allergy status to narcotic agent
CPT/HCPCS: 36415; 76856; 76856-26; 80053; 85025; 99284-25

== ENCOUNTER 2021-08-07 16:53 | Emergency (ER) | payer MEDICAID ==
[2021-08-07] MEDS ORDERED: Ketorolac 30 MG/ML SDV IM ONE (17:51)
[2021-08-07 18:50] VITALS: BP 126/72; PULSE 61
== END 2021-08-07 19:20 | disposition home or self-care (01) ==
LOC: JP.ED 16:53
DX: U07.1 COVID-19 (principal); N30.00 Acute cystitis without hematuria; E87.6 Hypokalemia; F15.20 Other stimulant dependence, uncomplicated; I10 Essential (primary) hypertension; J45.909 Unspecified asthma, uncomplicated; E66.9 Obesity, unspecified; Z68.30 Body mass index [BMI] 30.0-30.9, adult; Z86.16 Personal history of COVID-19; Z91.040 Latex allergy status; Z88.5 Allergy status to narcotic agent; Z88.2 Allergy status to sulfonamides
CPT/HCPCS: 36415; 80048; 80076; 81001; 81025; 85025; 86140; 96372; 99283; 99284; J1885

== ENCOUNTER 2021-08-08 16:57 | Emergency (ER) | payer MEDICAID ==
[2021-08-08 17:25] VITALS: BP 126/78; PULSE 73
[2021-08-08] MEDS ORDERED: Ketorolac 30 MG/ML SDV IM ONE (17:57)
== END 2021-08-08 18:41 | disposition home or self-care (01) ==
LOC: JP.ED 16:57
DX: U07.1 COVID-19 (principal); N30.00 Acute cystitis without hematuria; I10 Essential (primary) hypertension; E66.9 Obesity, unspecified; Z68.30 Body mass index [BMI] 30.0-30.9, adult; Z88.5 Allergy status to narcotic agent; Z88.2 Allergy status to sulfonamides; Z91.040 Latex allergy status; Z72.0 Tobacco use
CPT/HCPCS: 96372; 99283; J1885

== ENCOUNTER 2024-06-15 15:02 | Emergency (ER) | payer MEDICAID ==
[2024-06-15 16:34] VITALS: BP 153/97; PULSE 100
[2024-06-15] MEDS: Ketorolac 10 MG Tab PO ONE (17:15)
== END 2024-06-15 17:17 | disposition home or self-care (01) ==
LOC: JP.ED 15:02
DX: R22.0 Localized swelling, mass and lump, head (principal); K08.89 Other specified disorders of teeth and supporting structures; I10 Essential (primary) hypertension; E66.9 Obesity, unspecified; Z79.899 Other long term (current) drug therapy; Z79.51 Long term (current) use of inhaled steroids; Z91.040 Latex allergy status; Z88.5 Allergy status to narcotic agent; Z88.2 Allergy status to sulfonamides; Z68.38 Body mass index [BMI] 38.0-38.9, adult
CPT/HCPCS: 99283; A9270